=== PATIENT | male | born 1985 | race Two or more races ===

== ENCOUNTER 2024-03-12 17:18 | Inpatient (IN) | payer MEDICAID, SELFPAY ==
[2024-03-12 17:33] VITALS: BP 124/80; PULSE 134; RESP 26; TEMP 37; O2SAT 99; BMI 22.4
--- NOTE | 2024-03-12 17:36 | EKG_ITS ---
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: : 1985 Requested By: Hugh Sidhu Order Number: [id number] Reading MD: Hugh Sidhu Measurements Intervals [place] Rate: 128 P: 81 IA: 126 QRS: 128 QRSD: 97 T: 73 QT: 331 QTc: 484 Interpretive Statements SINUS TACHYCARDIA INDETERMINATE AXIS PATTERN CONSISTENT WITH PULMONARY DISEASE ST DEVIATION AND MODERATE T-WAVE ABNORMALITY, CONSIDER LATERAL ISCHEMIA [-0.1+ mV T WAVE IN I/aVL/V5/V6] Compared to ECG 09/17/2021 08:56:12 Indeterminate axis now present T-wave abnormality now present Possible ischemia now present Left posterior fascicular block no longer present /store/S0/[id number].pdf
--- NOTE | 2024-03-12 17:37 | XR_ITS ---
Examination: PA chest single view TECHNIQUE: Upright PA chest single view Exam date and time: March 12, 2024 1755 hours Comparison December 30, 2022 INDICATIONS: Chest pain beginning 3 days ago. FINDINGS: Normal heart size. No pneumonia or pulmonary edema Moderate thoracic spondylosis IMPRESSION: No pneumonia or pulmonary edema
--- NOTE | 2024-03-12 17:38 | PD.EDRME ---
Rapid Medical Screening Exam RME Arrival date/time: 03/12/24 17:18 Chief Complaint: Shortness of Breath/Dyspnea Time Seen by Provider: 03/12/24 17:31 Vital signs: Vital Signs Temperature 98.6 F 03/12/24 17:33 Pulse Rate 134 H 03/12/24 17:33 Respiratory Rate 26 H 03/12/24 17:33 Blood Pressure 124/80 03/12/24 17:33 Pulse Oximetry (%) 99 03/12/24 17:33 Oxygen Delivery Method Room Air 03/12/24 17:33 RME Narrative: 38-year-old male with history of diabetes and prior DKA presents with complaint of shortness of breath, chest pain, and nausea vomiting. Onset 3 days ago. Patient states it feels similar to the last time he had DKA. I have greeted and performed a focused initial assessment of this patient. A comprehensive ED assessment and evaluation of the patient, analysis of all test results, and completion of the medical decision making process will be conducted by additional ED providers.
[2024-03-12 18:26] LABS: Basophils % (Auto) 0 % (0-2.5); Eosinophils % (Auto) 0 % (0-10); Hematocrit 46.9 % (41.0-53.0); Hemoglobin 15.7 g/dL (13.5-16.0); Immature Granulocytes % (Auto) 0 % (0-0); Immature Granulocytes Auto 0.02 Thou/mm3 (0.00-0.00); Lymphocytes # (Auto) 1.2 Thou/mm3 (1.0-4.8); Lymphocytes % (Auto) 18 % (10-50); Mean Corpuscular HGB Conc 33.5 g/dl (31.0-37.0); Mean Corpuscular Hemoglobin 29.6 pg (25.0-35.0); Mean Corpuscular Volume 88 fL (80-100); Monocytes # (Auto) 0.5 Thou/mm3 (0.0-0.8); Monocytes % (Auto) 8 % (0-12); Neutrophils % (Auto) 74 % (37-80); Nucleated Red Blood Cell % 0 /100 WBC (0); Platelet Count 292 Thou/mm3 (140-440); RDW Standard Deviation 38.3 fL (35.1-43.9); Red Blood Count 5.31 Miln/mm3 (4.50-5.90); White Blood Count 6.8 Thou/mm3 (3.8-10.6)
[2024-03-12 18:27] LABS: Base Excess, Venous -22 (-3-3); O2 Saturation, Venous 75 % (96-97); PCO2, Venous 28 mmHg (36-56); PO2, Venous 49 mmHg (15-58); pH, Venous 7.05 (7.33-7.66)
[2024-03-12 18:35] LABS: Beta Hydroxybutyrate 6.3 mmol/L (<0.6)
[2024-03-12] MEDS: SODIUM CHLORIDE 0.9% 1000 ML 1,000 ML 999 ML IV (19:08)
[2024-03-12 19:22] LABS: Alanine Aminotransferase 17 U/L (10-49); Albumin, Serum 5.6 gm/dL (3.5-5.0); Alkaline Phosphatase 150 U/L (46-116); Anion Gap 28 (7-16); Aspartate Amino Transferase 14 U/L (0-34); BUN/Creatinine Ratio 12 Ratio (12-20); Bilirubin,Total 0.7 mg/dL (0.3-1.2); Blood Urea Nitrogen 17 mg/dL (9-23); Calcium 9.9 mg/dL (8.3-10.6); Calcium (Corrected) 9.9 mg/dL (8.5-10.1); Chloride 94 mMol/L (98-107); Creatinine (Component) 1.4 mg/dL (0.6-1.3); Globulin 2.8 gm/dL (2.3-3.5); Glucose 238 mg/dL (74-106); Magnesium 2.2 mg/dL (1.6-2.6); Osmolality,Calculated 274 (275-295); Phosphorous 4.9 mg/dL (2.4-5.1); Potassium 3.9 mMol/L (3.4-5.1); Sodium 132 mMol/L (136-145); Total Protein 8.4 gm/dL (5.7-8.2); Troponin I < 0.020 ng/mL (0.0-0.045); eGFR > 60 See Note
[2024-03-12 19:26] LABS: Carbon Dioxide < 10.0 mMol/L (20.0-31.0)
--- NOTE | 2024-03-12 20:48 | EDNOTE_ITS ---
ED SOB =RME/HPI General Chief Complaint: Shortness of Breath/Dyspnea Stated Complaint: sob, nausea,x 2days Time Seen by Provider: 03/12/24 17:31 Arrival date/time: 03/12/24 17:18 RME / HPI RME / HPI Narrative: 38-year-old male with history of diabetes and prior DKA presents with complaint of shortness of breath, chest pain, and nausea/vomiting. Onset 3 days ago. Patient states it feels similar to the last time he had DKA. Related Data Home Medications ?Medication ?Instructions ?Recorded ?Confirmed captopril 25 mg tablet 25 mg PO DAILY 09/17/21 0807/04 Previous Rx's ?Medication ?Instructions ?Recorded blood sugar diagnostic (Accu-Chek #25 ea 09/20/21 Guide test strips) lancets #100 ea 09/20/21 blood sugar diagnostic (Accu-Chek #100 ea 01/02/23 Guide test strips) blood-glucose meter (Accu-Chek #1 ea 01/02/23 Guide Glucose Meter) insulin glargine 100 unit/mL (3 25 unit (0.25 mL) subc ut QPM #15 mL 01/02/23 mL) subcutaneous pen (Basaglar KwikPen U-100 Insulin) insulin lispro 100 unit/mL 5 unit (0.05 mL) subcut TID #15 mL 01/02/23 subcutaneous pen lancets (Accu-Chek Fastclix Lancet #100 ea 01/02/23 Drum) pen needle, diabetic 31 gauge x #100 ea 01/02/23 1/ blood-glucose sensor (FreeStyle #1 ea 01/03/23 Kayden 3 Sensor device) Allergies Allergy/AdvReac Type Severity Reaction Status Date / Time No Known Allergies Allergy Unverified 03/12/24 17:23 Review of Systems Review of Systems Narrative Review of Systems: Review of systems negative except as outlined in the HPI. ED Exam Narrative Physical exam: Constitutional: Weak and ill-appearing Eyes: PERRL, conjunctivae w/o pallor, EOMI HENT: normocephalic, atraumatic. Oral mucosa moist Respiratory Effort: Tachypneic. No stridor, effort normal, no retractions Breath sounds: Clear bilaterally; No rales, No rhonchi, No wheezing Cardiovascular: regular rhythm, S1 and S2 normal, no murmur Abdominal: soft; non-distended, non-tender Musculoskeletal: no deformities, no swelling, no LE edema Skin: warm, dry; No rash Neurology: alert, oriented X 4. Normal gait. Moves all extremities spontaneously. Psychology: cooperative, normal mood Course Quality Measures none Orders Category Date Time Status Admit to Inpatient Status Routine Admission 03/12/24 21:15 Active Patient Condition Routine Admission 03/12/24 21:14 Ordered Activity as Tolerated Routine Care 03/12/24 21:15 Ordered Vp [employer] STAT Care 03/12/24 20:42 Active Continuous Pulse Oximetry NOW Care 03/12/24 21:14 Completed DKA Protocol QSHIFT Care 03/12/24 20:42 Active EKG (ED ONLY) *Do not use* NOW Care 03/12/24 17:36 Completed Glucose [Bedside Blood Glucose] NOW Care 03/12/24 17:36 Active Insert IV NOW Care 03/12/24 17:37 Active Intake and Output Routine Care 03/12/24 20:42 Ordered NPO NOW Care 03/12/24 21:15 Active Notify provider NEEDED Care 03/12/24 20:42 Active Notify provider NEEDED Care 03/12/24 21:14 Active Seizure precautions NEEDED Care 03/12/24 21:15 Active Strict Intake and Output Q1H Care 03/12/24 21:15 Ordered Strict Intake and Output Q1H Care 03/12/24 22:15 Ordered Strict Intake and Output Q1H Care 03/12/24 23:15 Ordered Strict Intake and Output Q1H Care 03/13/24 00:15 Ordered Strict Intake and Output Q1H Care 03/13/24 01:15 Ordered Strict Intake and Output Q1H Care 03/13/24 02:15 Ordered Strict Intake and Output Q1H Care 03/13/24 03:15 Ordered Strict Intake and Output Q1H Care 03/13/24 04:15 Ordered Strict Intake and Output Q1H Care 03/13/24 05:15 Ordered Strict Intake and Output Q1H Care 03/13/24 06:15 Ordered Strict Intake and Output Q1H Care 03/13/24 07:15 Ordered Strict Intake and Output Q1H Care 03/13/24 08:15 Ordered Strict Intake and Output Q1H Care 03/13/24 09:15 Ordered Strict Intake and Output Q1H Care 03/13/24 10:15 Ordered Strict Intake and Output Q1H Care 03/13/24 11:15 Ordered Strict Intake and Output Q1H Care 03/13/24 12:15 Ordered Strict Intake and Output Q1H Care 03/13/24 13:15 Ordered Strict Intake and Output Q1H Care 03/13/24 14:15 Ordered Strict Intake and Output Q1H Care 03/13/24 15:15 Ordered Strict Intake and Output Q1H Care 03/13/24 16:15 Ordered Strict Intake and Output Q1H Care 03/13/24 17:15 Ordered Strict Intake and Output Q1H Care 03/13/24 18:15 Ordered Strict Intake and Output Q1H Care 03/13/24 19:15 Ordered Strict Intake and Output Q1H Care 03/13/24 20:15 Ordered Strict Intake and Output Q1H Care 03/13/24 21:15 Ordered Referral Registered Dietitian Routine Cons 03/12/24 20:42 Active Diet NPO (NOW) Diet 03/12/24 21:15 Active EKG (ED Only) Stat Exams 03/12/24 17:36 Draft XR chest 1V portable Stat Exams 03/12/24 17:37 Completed Beta Hydroxybutyrate Stat Lab 03/12/24 18:11 Completed CBC AM DRAW Lab 03/13/24 05:00 Ordered CBC AM DRAW Lab 03/14/24 05:00 Ordered CBC AM DRAW Lab 03/15/24 05:00 Ordered CBC AM DRAW Lab 03/16/24 05:00 Ordered CBC AM DRAW Lab 03/17/24 05:00 Ordered CBC Stat Lab 03/12/24 18:11 Completed CMP [Comprehensive Metabolic Panel] Stat Lab 03/12/24 18:11 Completed Lipid Panel AM DRAW Lab 03/13/24 05:00 Ordered Magnesium Q4H Lab 03/12/24 21:52 Completed Magnesium Q4H Lab 03/13/24 01:30 Ordered Magnesium Q4H Lab 03/13/24 05:30 Ordered Magnesium Q4H Lab 03/13/24 09:30 Ordered Magnesium Q4H Lab 03/13/24 13:30 Ordered Magnesium Q4H Lab 03/13/24 17:30 Ordered Magnesium Stat Lab 03/12/24 18:11 Completed Phosphorous Q4H Lab 03/13/24 01:30 Ordered Phosphorous Q4H Lab 03/13/24 05:30 Ordered Phosphorous Q4H Lab 03/13/24 09:30 Ordered Phosphorous Q4H Lab 03/13/24 13:30 Ordered Phosphorous Q4H Lab 03/13/24 17:30 Ordered Phosphorous Stat Lab 03/12/24 18:11 Completed Renal Function Panel Q4 Lab 03/12/24 21:52 Completed Renal Function Panel Q4 Lab 03/13/24 01:30 Ordered Renal Function Panel Q4 Lab 03/13/24 05:30 Ordered Renal Function Panel Q4 Lab 03/13/24 09:30 Ordered Renal Function Panel Q4 Lab 03/13/24 13:30 Ordered Renal Function Panel Q4 Lab 03/13/24 17:30 Ordered Thyroid Stimulating Hormone AM DRAW Lab 03/13/24 05:00 Ordered Troponin I Stat Lab 03/12/24 18:11 Completed Urinalysis Stat Lab 03/12/24 21:18 Completed Venous Blood Gas Stat Lab 03/12/24 18:11 Completed Acetaminophen Tab [Tylenol Tab] Med 03/12/24 21:14 Active 650 mg PO Q6H PRN Acetaminophen Tab [Tylenol Tab] Med 03/12/24 21:14 Active 650 mg PO Q6H PRN Dextrose 5%-Lactated Ringers [D5-Lr] 1,000 ml Med 03/12/24 20:42 Active IV 250 mls/hr Dextrose 50% Syr [D50w Syringe Abboject] Med 03/12/24 20:42 Active 25 ml IV PRNMRX1 PRN Enoxaparin [Lovenox] Med 03/13/24 09:00 Active 40 mg SC QDAY KCL 20 mEq/L in D5-LR Med 03/12/24 20:42 Active 20 meq in 1,000 ml IV 250 mls/hr Magnesium Sulfate 2 GM Ivpb [Magnesium Sulfate Ivpb] Med 03/12/24 20:42 Active 2 gm in 50 ml IV 25 mls/hr Ondansetron Inj [Zofran Inj] Med 03/12/24 21:14 Active 4 mg IV Q6H PRN POTASSIUM CHL 10 mEq IVPB [Kcl Ivpb] Med 03/12/24 20:42 Active 10 meq in 100 ml IV 100 mls/hr Pre-Mixed [Pre-mixed Bag] 1 bag Med 03/12/24 20:42 Active Insulin Reg 100 Units/100 ml [Myxredlin] 100 unit IV 0.1 unit/kg/hr Ringers Lactated 1000 ml [Lactated Ringers] 1,000 ml Med 03/12/24 20:42 Active Pot Chl Additive [KCl Additive] 20 meq IV 250 mls/hr Ringers Lactated 1000 ml [Lactated Ringers] 1,000 ml Med 03/12/24 20:42 Active Pot Chl Additive [KCl Additive] 40 meq IV 250 mls/hr Ringers Lactated 1000 ml [Lactated Ringers] 1,000 ml Med 03/12/24 20:42 Active IV 250 mls/hr Sodium Chloride 0.9% 1000 ml [Ns] 1,000 ml Med 03/12/24 17:37 Discontinued IV 999 mls/hr Code Status Routine Oth 03/12/24 21:14 Ordered Vital Signs Vital signs: Vital Signs Temperature 98.6 F 03/12/24 17:33 Pulse Rate 134 H 03/12/24 17:33 Respiratory Rate 26 H 03/12/24 17:33 Blood Pressure 124/80 03/12/24 17:33 Pulse Oximetry (%) 99 03/12/24 17:33 Oxygen Delivery Method Room Air 03/12/24 17:33 Shortness of Breath / Dyspnea MDM Narrative MDM Narrative:: 38-year-old male with history of insulin-dependent diabetes presents with complaint of shortness of breath. Differential diagnoses include ACS, PE, DKA, pneumothorax, URI. EKG and troponin reassuring against ACS. History not consistent with PE and patient with normal SpO2 on room air. Chest x-ray without evidence of pneumoth orax. Labs with elevated anion gap, blood gas shows a pH of 7.05. Likely DKA. Discussed with ICU resident Dr. Nation, and patient will be admitted to the ICU. Patient data External records reviewed:: [facility] previous records Clinical information provided by:: patient Social determinants that could affect healthcare access:: none Patient has the following chronic illnesses:: Diabetes How is presenting disease/condition affected by chronic disease/condition?: caused by Evaluation data The following diagnostics were reviewed and interpreted by me:: lab results and radiology exam(s) Lab and/or radiology exams considered but not ordered:: None Interpretation Summary: EKG: Sinus tachycardia rate 128. No STEMI. No T wave inversions. Examination: PA chest single view TECHNIQUE: Upright PA chest single view Exam date and time: March 12, 2024 1755 hours Comparison December 30, 2022 INDICATIONS: Chest pain beginning 3 days ago. FINDINGS: Normal heart size. No pneumonia or pulmonary edema Moderate thoracic spondylosis IMPRESSION: No pneumonia or pulmonary edema Medications / Prescriptions Medications or Prescriptions considered but not ordered:: N/A Medication administrations:: Medication Administration History Acetaminophen (Acetaminophen 325 Mg Tablet) 650 mg PO Q6H PRN PRN Reason: Fever >101.5 Stop: 04/11/24 21:13 Acetaminophen (Acetaminophen 325 Mg Tablet) 650 mg PO Q6H PRN PRN Reason: PAIN SCALE 1-3 (mild Stop: 04/11/24 21:13 Dextrose (Dextrose 50%-Water Inj 50 Ml Syringe) 25 ml IV PRNMRX1 PRN PRN Reason: Blood Sugar - Low Enoxaparin Sodium (Enoxaparin Sod Inj 40 Mg/0.4 Ml Syringe) 40 mg SC QDAY NANCY Stop: 03/27/24 08:59 Potassium Chloride (Kcl Ivpb) 10 meq in 100 mls @ 100 mls/hr IV .Q1H PRN PRN Reason: IF POTASSIUM LESS THAN 3.3 Stop: 04/11/24 20:41 Magnesium Sulfate (Magnesium Sulfate Ivpb) 2 gm in 50 mls @ 25 mls/hr IV .Q2H PRN PRN Reason: PER DKA PROTOCOL Stop: 04/11/24 20:41 Insulin Human Regular 100 unit (/ IV Miscellaneous Supplies) 100 mls @ 6.486 mls/hr IV .[id number] PRN; Protocol PRN Reason: PER PROTOCOL Stop: 04/11/24 20:41 Last Titration: 03/12/24 23:00 Dose: 0.05 unit/kg/hr, 3.243 mls/hr Documented By: CLT Co-signed By: LACEY Titration: 03/12/24 22:40 Dose: 0.1 unit/kg/hr, 6.486 mls/hr Documented By: SRINIVASAN Co-signed By: VANDA Admin: 03/12/24 21:40 Dose: 0.05 unit/kg/hr, 3.243 mls/hr Documented By: EE Co-signed By: VANDA Dextrose/Lactated Ringer's (D5-Lr) 1,000 mls @ 250 mls/hr IV .Q4H PRN PRN Reason: PER PROTOCOL Stop: 04/11/24 20:41 Lactated Ringer's (Lactated Ringers) 1,000 mls @ 250 mls/hr IV .Q4H PRN PRN Reason: PER PROTOCOL Stop: 03/13/24 20:41 Potassium Chloride 20 meq/ (Lactated Ringer's) 1,010 mls @ 250 mls/hr IV .Q4H3M PRN PRN Reason: K LEVEL 3.3 TO 5.3mM/L Stop: 04/11/24 20:41 Last Infusion: 03/12/24 23:00 Dose: 0 mls/hr Documented By: Admin: 03/12/24 22:40 Dose: 250 mls/hr Documented By: SRINIVASAN Potassium Chloride 40 meq/ (Lactated Ringer's) 1,020 mls @ 250 mls/hr IV .Q4H5M PRN PRN Reason: K LEVEL < 3.3 mM/L Stop: 04/11/24 20:41 Potassium Cl/Dextrose/Lact Ringer's (Kcl 20 Meq/L In D5-Lr) 20 meq in 1,000 mls @ 250 mls/hr IV .Q4H PRN PRN Reason: K LEVEL 3.3 TO 5.3 mM/L Stop: 04/11/24 20:41 Last Infusion: 03/12/24 23:00 Dose: 250 mls/hr Documented By: Infusion: 03/12/24 22:40 Dose: 0 mls/hr Documented By: Admin: 03/12/24 21:41 Dose: 250 mls/hr Documented By: SRINIVASAN Ondansetron HCl (Ondansetron Inj 2 Mg/Ml Inj 2 Ml) 4 mg IV Q6H PRN; Protocol PRN Reason: NAUSEA OR VOMITING Stop: 04/11/24 21:13 Last Admin: 03/12/24 23:34 Dose: 4 mg Documented By: ANA Discontinued Medications Sodium Chloride (Ns) 1,000 mls @ 999 mls/hr IV .Q1H1M ONE Stop: 03/12/24 18:37 Last Infusion: 03/12/24 21:30 Dose: Infused Documented By: Admin: 03/12/24 19:08 Dose: 999 mls/hr Documented By: OA see above Consultations Consultation(s) initiated? (list below): Yes Consultation #1 (Physician, Specialty, Details): Case discussed with resident, Dr. Nation. Will admit to ICU. Time: 20:45 Diagnosis Shortness of Breath Differential Diagnosis: other (See MDM section) Most likely diagnosis given after review of the tests above:: Diabetic ketoacidosis Admission Indicated Admission indicated?: indicated Admission Request Was there a request for admission?: Yes Disposition Plan Disposition Plan: Admit Critical Care Time Critical Care Time Critical Care Time: Yes Total Critical Care Time (min.): 35 Attestation: Due to a high probability of clinically significant, life threatening deterioration, the patient required my highest level of preparedness to intervene emergently and I personally spent this critical care time directly and personally managing the patient. This critical care time included obtaining a history; examining the patient; pulse oximetry; ordering and review of studies; arranging urgent treatment with development of a management plan; evaluation of patient's response to treatment; frequent reassessment; and, discussions with other providers. This critical care time was performed to assess and manage the high probability of imminent, life-threatening deterioration that could result in multi-organ failure. It was exclusive of separately billable procedures and treating other patients. Please see MDM section and the rest of the note for further information on patient assessment and treatment. Systems at risk: Endocrine, metabolic Discharge Plan Plan Patient Disposition: Admit Acute Care w/in Hospital Problem List Clinical Impression: DKA (diabetic ketoacidosis)
[2024-03-12 21:31] LABS: Collection Type, Urine Clean Catch
[2024-03-12 21:34] VITALS: BP 156/106; PULSE 109; PULSE 113; RESP 22; TEMP 36.4; O2SAT 100
[2024-03-12 21:40] LABS: Bacteria,Urine Rare; Bilirubin,Urine Negative (Negative); Blood,Urine Negative (Negative); Clarity,Urine Clear (Clear/Hazy); Color,Urine Lt-Yellow (Lt Yel-Yel); Glucose, Urine 4+ (Negative); Ketones,Urine 4+ (Negative); Leukocyte Esterase,Urine Negative (Negative); Nitrite,Urine Negative (Negative); PH,Urine 5.5 (5.0-7.0); Protein,Urine 1+ (Neg - Trace); RBC,Urine 1 /hpf (0-3); Specific Gravity,Urine 1.026 (1.001-1.035); Squamous Epithelial Cell,Urine < 1 /hpf (0-5); Urobilinogen,Urine Negative mg/dL (0.0-1.0); WBC,Urine < 1 /hpf (0-5)
[2024-03-12] MEDS: INSULIN REG 100 UNITS/100 ML 100 UNIT in PRE-MIXED 1 BAG IV (21:40)
[2024-03-12] MEDS: KCL 20 mEq/L in D5-LR 20 MEQ/1,000 ML BAG 250 MEQ IV (21:41)
[2024-03-12 21:45] VITALS: PULSE 108; RESP 16; O2SAT 100
--- NOTE | 2024-03-12 21:45 | ESHP_ITS ---
<Statement entered by Mart Guardado MD - 03/13/24 10:37> I have discussed and was present for the essential components of the history, physical examination, diagnosis, and treatment plan with the resident. I agree with the patient's care as documented by the resident and amended herein by me. Mart Guardado MD FACP. Documentation for date of: 03/12/24 HPI History of Present Illness Chief complaint: SOB History of present illness: Patient is a 38 male with past medical history of insulin-dependent diabetes mellitus, previous hospital admissions for DKA, EtOH use, pancreatitis and high blood pressure presenting with a 3-day history of shortness of breath and decreased p.o. intake with generalized weakness. Patient explains that he recently returned from a trip to [place] about 2 weeks ago after staying there since January. In [place] he was found to have DKA and he was admitted for a couple of days. He did not have any sick contacts and was doing well since he returned however he has not been compliant with his insulin checks. He states that usually when he is checks his fasting blood glucose he is in the 90s to 130s range however he does not check for the remainder of the day. He has not seen his PCP ' for a while' but does state that he has been taking his insulin as previously prescribed, though he did not tell me exactly how many units he has been taking. He denies any nausea, vomiting, abdominal pain, fevers, chills, dysuria, diarrhea or constipation. Past medical history: Hypertension, insulin-dependent diabetes, triglyceridemia Allergies: None Family history: Hypertension diabetes Social history: Drinks 3 beers daily and has been doing so for many years, smokes 1 or 2 cigarettes occasionally but does not remember the last time he did that. Does not use any other substances. He works in the [employer] Surgical history: Left upper back abscess drainage years ago. In the ED Vital signs: BP 124/80, pulse 134, RR 26, temperature 98.6, O2 sat 99 on room air CBC was unremarkable VBG was significant for a pH of 7.05 CMP was significant for a bicarb of less than 10, anion gap of 28, creatinine of 1.4 from a baseline of 0.7, glucose of 238, BHB 6.3 EKG shows sinus tachycardia and chest x-ray did not reveal any pathology Patient will be admitted to the ICU for management of his DKA Review of Systems Review of Systems Systems Reviewed: All systems reviewed, normal except as documented Exam Vital Signs Temp Pulse Resp BP Pulse Ox O2 Del Method 97.6 F 113 H 22 H 156/106 H 100 Room Air 03/12/24 21:34 03/12/24 21:34 03/12/24 21:34 03/12/24 21:34 03/12/24 21:34 03/12/24 21:34 Narrative Exam Constitutional: Thin male in some distress Head: Normocephalic/Atraumatic Eyes: PERRL , no conjunctival injection , symmetrical lids. ENMT: Dry mucous Membranes, No trauma or injury. Neck: Supple to palpation, No JVD CVS: RRR, S1 and S2 present, no murmurs, rubs or gallops . RESP: CTAB, no SOB, no rales, rhonchi or wheezing. No respiratory Distress GI: Normal BS, mild tenderness to deep palpation epigastric region MSK: Full range of motion, No trauma or deformities or masses. Skin: Warm to touch, Dry. No rashes or lesions. No hematomas Neuro: solar consultant II-XII grossly intact. Sensation grossly intact. Psych: (AAO) x3 . Appropriate mood and affect. Results: Labs 03/12/24 18:11 03/12/24 18:11 Labs: Short CBC 03/12/24 Range/Units 18:11 WBC 6.8 (3.8-10.6) Thou/mm3 Hgb 15.7 (13.5-16.0) g/dL Hct 46.9 (41.0-53.0) % Plt Count 292 (140-440) Thou/mm3 BMP 03/12/24 18:11 Sodium 132 L Potassium 3.9 Chloride 94 L Carbon Dioxide < 10.0 L* BUN 17 Creatinine 1.4 H Glucose 238 H Calcium 9.9 Cardiac Enzymes 03/12/24 Range/Units 18:11 Troponin I < 0.020 (0.0-0.045) ng/mL Liver Function 03/12/24 Range/Units 18:11 Total Bilirubin 0.7 (0.3-1.2) mg/dL AST 14 (0-34) U/L ALT 17 (10-49) U/L Alkaline Phosphatase 150 H (46-116) U/L Albumin 5.6 H (3.5-5.0) gm/dL Urine 03/12/24 Range/Units 21:18 Urine Color Lt-Yellow (Lt Yel-Yel) Urine Clarity Clear (Clear/Hazy) Urine pH 5.5 (5.0-7.0) Ur Specific Patterson 1.026 (1.001-1.035) Urine Protein 1+ A (Neg - Trace) Urine Glucose (UA) 4+ A (Negative) ABG Interpretation ABG results: 03/12/24 18:11 VBG pH 7.05 L VBG pCO2 28 L VBG pO2 49 VBG Base Excess -22 L Quality Measures Quality Measures none Medications Home Medications and Allergies Home Medications ?Medication ?Instructions ?Recorded ?Confirmed ?Type captopril 25 mg tablet 25 mg PO DAILY 09/17/2107/04 History Allergies Allergy/AdvReac Type Severity Reaction Status Date / Time No Known Allergies Allergy Unverified 03/12/24 17:23 Visit Medications Acetaminophen (Acetaminophen 325 Mg Tablet) 650 mg PO Q6H PRN PRN Reason: Fever >101.5 Stop: 04/11/24 21:13 Acetaminophen (Acetaminophen 325 Mg Tablet) 650 mg PO Q6H PRN PRN Reason: PAIN SCALE 1-3 (mild Stop: 04/11/24 21:13 Dextrose (Dextrose 50%-Water Inj 50 Ml Syringe) 25 ml IV PRNMRX1 PRN PRN Reason: Blood Sugar - Low Enoxaparin Sodium (Enoxaparin Sod Inj 40 Mg/0.4 Ml Syringe) 40 mg SC QDAY [facility] Stop: 03/27/24 08:59 Potassium Chloride (Kcl Ivpb) 10 meq in 100 mls @ 100 mls/hr IV .Q1H PRN PRN Reason: IF POTASSIUM LESS THAN 3.3 Stop: 04/11/24 20:41 Magnesium Sulfate (Magnesium Sulfate Ivpb) 2 gm in 50 mls @ 25 mls/hr IV .Q2H PRN PRN Reason: PER DKA PROTOCOL Stop: 04/11/24 20:41 Insulin Human Regular 100 unit (/ IV Miscellaneous Supplies) 100 mls @ 6.486 mls/hr IV .[id number] PRN; Protocol PRN Reason: PER PROTOCOL Stop: 04/11/24 20:41 Last Admin: 03/12/24 21:40 Dose: 0.05 unit/kg/hr, 3.243 mls/hr Dextrose/Lactated Ringer's (D5-Lr) 1,000 mls @ 250 mls/hr IV .Q4H PRN PRN Reason: PER PROTOCOL Stop: 04/11/24 20:41 Lactated Ringer's (Lactated Ringers) 1,000 mls @ 250 mls/hr IV .Q4H PRN PRN Reason: PER PROTOCOL Stop: 03/13/24 20:41 Potassium Chloride 20 meq/ (Lactated Ringer's) 1,010 mls @ 250 mls/hr IV .Q4H3M PRN PRN Reason: K LEVEL 3.3 TO 5.3mM/L Stop: 04/11/24 20:41 Potassium Chloride 40 meq/ (Lactated Ringer's) 1,020 mls @ 250 mls/hr IV .Q4H5M PRN PRN Reason: K LEVEL < 3.3 mM/L Stop: 04/11/24 20:41 Potassium Cl/Dextrose/Lact Ringer's (Kcl 20 Meq/L In D5-Lr) 20 meq in 1,000 mls @ 250 mls/hr IV .Q4H PRN PRN Reason: K LEVEL 3.3 TO 5.3 mM/L Stop: 04/11/24 20:41 Last Admin: 03/12/24 21:41 Dose: 250 mls/hr Ondansetron HCl (Ondansetron Inj 2 Mg/Ml Inj 2 Ml) 4 mg IV Q6H PRN; Protocol PRN Reason: NAUSEA OR VOMITING Stop: 04/11/24 21:13 Discontinued Medications Sodium Chloride (Ns) 1,000 mls @ 999 mls/hr IV .Q1H1M ONE Stop: 03/12/24 18:37 Last Infusion: 03/12/24 21:30 Dose: Infused Assessment & Plan Plan Neuro Stable, alert and oriented x 3 without any confusion, able to speak full sentences in Greek CVS #History of hypertension Currently normotensive Will restart home meds once patient's med rec is completed Resp Stable GI Stable Renal #GAYLE #Anion gap metabolic acidosis Secondary to DKA and severe dehydration Patient's pH was 7.05, BHB was 6.5 and bicarb was less than 10. Patient has history of IDDM Aggressive IV fluid resuscitation and management of his DKA Endocrine #DKA Likely secondary to poor intake in the last several days as well as noncompliant with medications On presentation patient had a pH of 7.05, bicarb was less than 10, anion gap of 28 and BHB of 6.3 with a blood glucose of 238 Plan: N.p.o. Zofran as needed IV fluid resuscitation and insulin drip as per DKA protocol Electrolyte replenishment protocol Follow-up with lipid panel Follow-up with lipase level Referral to registered dietitian ID/Skin Stable Hematology Stable Hospital Maintenance: FEN: N.p.o., aggressive IV fluid resuscitation DVT PPx: Lovenox GI PPx: None IV lines: Left peripheral IV upper extremity Gómez: No Code Status: Full code Dispo: Patient will remain in the ICU for further management of his DKA I discussed patient's care with attending, Dr. Geo Nation MD, PGY3
[2024-03-12 22:00] VITALS: BP 140/99; PULSE 109; RESP 16; O2SAT 100
[2024-03-12 22:11] LABS: Base Excess, Venous -22 (-3-3); O2 Saturation, Venous 78 % (96-97); PCO2, Venous 22 mmHg (36-56); PO2, Venous 50 mmHg (15-58); pH, Venous 7.08 (7.33-7.66)
[2024-03-12 22:15] VITALS: BP 140/99; PULSE 105; RESP 19; TEMP 36.6; O2SAT 100
[2024-03-12] MEDS: POT CHL ADDITIVE 20 MEQ in RINGERS LACTATED 1000 ML 1,000 ML 250 MEQ IV (22:40)
[2024-03-12 22:52] LABS: Albumin, Serum 4.7 gm/dL (3.5-5.0); Alcohol, Blood Medical < 3.0 mg/dL (0-10.0); Anion Gap 25 (7-16); BUN/Creatinine Ratio 12 Ratio (12-20); Blood Urea Nitrogen 14 mg/dL (9-23); Calcium 9.3 mg/dL (8.3-10.6); Calcium (Corrected) 9.3 mg/dL (8.5-10.1); Chloride 101 mMol/L (98-107); Creatinine (Component) 1.2 mg/dL (0.6-1.3); Estimated Creatinine Clearance 75.8 mL/min (>60); Glucose 186 mg/dL (74-106); Lipase 22 U/L (12-53); Osmolality,Calculated 277 (275-295); Phosphorous 3.7 mg/dL (2.4-5.1); Potassium 3.9 mMol/L (3.4-5.1); Sodium 136 mMol/L (136-145); eGFR > 60 See Note
[2024-03-12 22:53] LABS: Carbon Dioxide < 10.0 mMol/L (20.0-31.0)
[2024-03-12 23:03] VITALS: BP 149/108; PULSE 108; RESP 19; O2SAT 100
[2024-03-12] MEDS: ONDANSETRON INJ 2 MG/ML INJ 2 ML 4 MG IV (23:34)
[2024-03-13] VITALS (21 sets, daily range): BP systolic 104–137; BP diastolic 67–109; PULSE 85–118; RESP 14–26; TEMP 36.1–37.2; O2SAT 99–100; BMI 19.4; BMI 19.5
[2024-03-13 01:50] LABS: Base Excess, Venous -15 (-3-3); O2 Saturation, Venous 96 % (96-97); PCO2, Venous 20 mmHg (36-56); PO2, Venous 103 mmHg (15-58); pH, Venous 7.29 (7.33-7.66)
[2024-03-13 02:09] LABS: Albumin, Serum 4.2 gm/dL (3.5-5.0); Anion Gap 21 (7-16); BUN/Creatinine Ratio 16 Ratio (12-20); Blood Urea Nitrogen 14 mg/dL (9-23); Calcium 9.2 mg/dL (8.3-10.6); Calcium (Corrected) 9.2 mg/dL (8.5-10.1); Chloride 106 mMol/L (98-107); Creatinine (Component) 0.9 mg/dL (0.6-1.3); Estimated Creatinine Clearance 101.1 mL/min (>60); Glucose 148 mg/dL (74-106); Magnesium 1.8 mg/dL (1.6-2.6); Osmolality,Calculated 277 (275-295); Phosphorous 1.8 mg/dL (2.4-5.1); Potassium 3.9 mMol/L (3.4-5.1); Sodium 137 mMol/L (136-145); eGFR > 60 See Note
[2024-03-13] MEDS: KCL 20 mEq/L in D5-LR 20 MEQ/1,000 ML BAG 250 MEQ IV ×2 (03:03→07:07)
[2024-03-13 06:11] LABS: Base Excess, Venous -9 (-3-3); O2 Saturation, Venous 96 % (96-97); PCO2, Venous 31 mmHg (36-56); PO2, Venous 142 mmHg (15-58); pH, Venous 7.32 (7.33-7.66)
[2024-03-13 06:23] LABS: Basophils % (Auto) 0 % (0-2.5); Eosinophils % (Auto) 0 % (0-10); Hematocrit 35.7 % (41.0-53.0); Hemoglobin 12.6 g/dL (13.5-16.0); Immature Granulocytes % (Auto) 0 % (0-0); Immature Granulocytes Auto 0.02 Thou/mm3 (0.00-0.00); Lymphocytes # (Auto) 1.5 Thou/mm3 (1.0-4.8); Lymphocytes % (Auto) 25 % (10-50); Mean Corpuscular HGB Conc 35.3 g/dl (31.0-37.0); Mean Corpuscular Hemoglobin 29.7 pg (25.0-35.0); Mean Corpuscular Volume 84 fL (80-100); Monocytes # (Auto) 0.7 Thou/mm3 (0.0-0.8); Monocytes % (Auto) 11 % (0-12); Neutrophils # (Auto) 3.9 Thou/mm3 (1.8-7.7); Neutrophils % (Auto) 64 % (37-80); Nucleated Red Blood Cell % 0 /100 WBC (0); Platelet Count 217 Thou/mm3 (140-440); RDW Standard Deviation 34.6 fL (35.1-43.9); Red Blood Count 4.24 Miln/mm3 (4.50-5.90); White Blood Count 6.1 Thou/mm3 (3.8-10.6)
[2024-03-13 06:49] LABS: Albumin, Serum 3.9 gm/dL (3.5-5.0); Anion Gap 16 (7-16); BUN/Creatinine Ratio 12 Ratio (12-20); Blood Urea Nitrogen 12 mg/dL (9-23); Calcium 9.4 mg/dL (8.3-10.6); Calcium (Corrected) 9.5 mg/dL (8.5-10.1); Carbon Dioxide 15.7 mMol/L (20.0-31.0); Chloride 108 mMol/L (98-107); Estimated Creatinine Clearance 79.1 mL/min (>60); Glucose 152 mg/dL (74-106); Magnesium 1.8 mg/dL (1.6-2.6); Osmolality,Calculated 282 (275-295); Phosphorous 1.4 mg/dL (2.4-5.1); Potassium 3.7 mMol/L (3.4-5.1); Sodium 140 mMol/L (136-145); Thyroid Stimulating Hormone 1.64 uIU/mL (0.55-4.78); eGFR > 60 See Note
[2024-03-13 07:05] LABS: Cardiac Risk Estimate 2.4 RATIO (4.0-6.7); Cholesterol 88 mg/dL (132-200); HDL Cholesterol 36 mg/dL (40-60); LDL Cholesterol,Calculated 38 mg/dL (0-130); Triglycerides 69 mg/dL (30-150)
[2024-03-13] MEDS: ENOXAPARIN SOD INJ 40 MG/0.4 ML SYRINGE SC (08:02)
[2024-03-13 09:28] LABS: Base Excess, Venous -3 (-3-3); O2 Saturation, Venous 95 % (96-97); PCO2, Venous 38 mmHg (36-56); PO2, Venous 89 mmHg (15-58); pH, Venous 7.36 (7.33-7.66)
[2024-03-13 09:54] LABS: Anion Gap 11 (7-16); BUN/Creatinine Ratio 11 Ratio (12-20); Blood Urea Nitrogen 10 mg/dL (9-23); Calcium 8.9 mg/dL (8.3-10.6); Calcium (Corrected) 8.9 mg/dL (8.5-10.1); Carbon Dioxide 21.4 mMol/L (20.0-31.0); Chloride 108 mMol/L (98-107); Creatinine (Component) 0.9 mg/dL (0.6-1.3); Estimated Creatinine Clearance 87.9 mL/min (>60); Glucose 102 mg/dL (74-106); Magnesium 1.7 mg/dL (1.6-2.6); Osmolality,Calculated 278 (275-295); Phosphorous 1.3 mg/dL (2.4-5.1); Potassium 3.2 mMol/L (3.4-5.1); Sodium 140 mMol/L (136-145); eGFR > 60 See Note
[2024-03-13 10:15] LABS: Glucose Estimated Average 283 mg/dL (80-131); Hemoglobin A1C 11.5 % Hgb (4.8-6.0)
--- NOTE | 2024-03-13 10:28 | PD.INTPROG ---
Documentation for date of: 03/13/24 Subjective Subjective Interval history: This is a 38yo M admitted to the ICU for DKA. Pt notes that he does not check his blood sugar with any frequency. States his home regimen has been consistent with one time daily dosing of insulin. He has been admitted approximately once a year for DKA over the last few years. States he feels better than on arrival. Critical Care Note Critical care time (min.): 0 Exam Vital Signs Temp Pulse Resp BP Pulse Ox O2 Del Method O2 Flow Rate 98.6 F 96 17 119/76 99 Room Air 10 03/13/24 07:00 03/13/24 09:00 03/13/24 09:00 03/13/24 09:00 03/13/24 09:00 03/13/24 07:00 03/13/24 04:00 Narrative Exam Gen- NAD, AAOx3, nl body habitus HEENT- NC/AT, mucosa dry, sclera anicteric, EOMI Chest- LCTAB, HRRR, no increase in WOB Abd- s/nt/bs+ Ext- no edema, pulses palp, no clubbing, no mottling, moves all 4 Physical Exam Completion Physical Exam Complete?: Yes Objective - [employer] [facility] 03/13/24 04:52 03/13/24 05:05 Labs: Laboratory Results - last 24 hr 03/12/24 03/12/24 03/12/24 18:11 21:18 21:52 WBC 6.8 RBC 5.31 Hgb 15.7 Hct 46.9 MCV 88 MCH 29.6 MCHC 33.5 RDW Std Deviation 38.3 Plt Count 292 Neut % (Auto) 74 Lymph % (Auto) 18 [place] % (Auto) 8 Eos % (Auto) 0 Baso % (Auto) 0 Neut # (Auto) 5.0 Lymph # (Auto) 1.2 [place] # (Auto) 0.5 Eos # (Auto) 0.0 Baso # (Auto) 0.0 Immature Gran # (Auto) 0.02 H Absolute Nucleated RBC 0.00 Immature Gran % 0 Nucleated RBC % 0 VBG pH 7.05 L 7.08 L VBG pCO2 28 L 22 L VBG pO2 49 50 VBG O2 Sat (Trey) 75 L 78 L VBG Base Excess -22 L -22 L Sodium 132 L 136 Potassium 3.9 3.9 Chloride 94 L 101 Carbon Dioxide < 10.0 L* < 10.0 L* Anion Gap 28 H 25 H BUN 17 14 Creatinine 1.4 H 1.2 Estim Creat Clear Calc 65.0 75.8 eGFR > 60 > 60 BUN/Creatinine Ratio 12 12 Glucose [address] H [address] Glu mg/dL Hemoglobin A1c Calculated Osmolality 274 L 277 Calcium 9.9 9.3 Corrected Calcium 9.9 9.3 Phosphorus 4.9 3.7 Magnesium 2.2 2.0 Total Bilirubin 0.7 AST 14 ALT 17 Alkaline Phosphatase 150 H Troponin I < 0.020 Total Protein 8.4 H Albumin 5.6 H 4.7 D Globulin 2.8 Albumin/Globulin Ratio 2.0 Triglycerides Cholesterol LDL Cholesterol, Calc HDL Cholesterol Cholesterol/HDL Ratio Lipase 22 Beta-Hydroxybutyrate/Acetoacetate 6.3 H TSH Ur Collection Type Clean Catch Urine Color Lt-Yellow Urine Clarity Clear Urine pH 5.5 Ur Specific [place] 1.026 Urine Protein 1+ A Urine Glucose (UA) 4+ A Urine Ketones 4+ A Urine Blood Negative Urine Nitrite Negative Urine Bilirubin Negative Urine Urobilinogen (Auto) Negative Ur Leukocyte Esterase Negative Urine RBC 1 Urine WBC < 1 Ur Squamous Epith Cells < 1 Urine Bacteria Rare Ethyl Alcohol < 3.0 03/13/24 03/13/24 03/13/24 01:38 04:52 05:05 WBC 6.1 RBC 4.24 L Hgb 12.6 L D Hct 35.7 L D MCV 84 MCH 29.7 MCHC 35.3 RDW Std Deviation 34.6 L Plt Count 217 D Neut % (Auto) 64 Lymph % (Auto) 25 [place] % (Auto) 11 Eos % (Auto) 0 Baso % (Auto) 0 Neut # (Auto) 3.9 Lymph # (Auto) 1.5 [place] # (Auto) 0.7 Eos # (Auto) 0.0 Baso # (Auto) 0.0 Immature Gran # (Auto) 0.02 H Absolute Nucleated RBC 0.00 Immature Gran % 0 Nucleated RBC % 0 VBG pH 7.29 L 7.32 L VBG pCO2 20 L 31 L D VBG pO2 103 H D 142 H D VBG O2 Sat (Trey) 96 D 96 VBG Base Excess -15 L -9 L Sodium 137 140 Potassium 3.9 3.7 Chloride 106 108 H Carbon Dioxide 10.0 L* 15.7 L Anion Gap 21 H 16 BUN 14 12 Creatinine 0.9 1.0 Estim Creat Clear Calc 101.1 79.1 eGFR > 60 > 60 BUN/Creatinine Ratio 16 12 Glucose [address] Glu mg/dL 283 H Hemoglobin A1c 11.5 H Calculated Osmolality 277 282 Calcium 9.2 9.4 Corrected Calcium 9.2 9.5 Phosphorus 1.8 L 1.4 L Magnesium 1.8 1.8 Total Bilirubin AST ALT Alkaline Phosphatase Troponin I Total Protein Albumin 4.2 D 3.9 Globulin Albumin/Globulin Ratio Triglycerides 69 Cholesterol 88 L LDL Cholesterol, Calc 38 HDL Cholesterol 36 L Cholesterol/HDL Ratio 2.4 L Lipase Beta-Hydroxybutyrate/Acetoacetate TSH 1.64 Ur Collection Type Urine Color Urine Clarity Urine pH Ur Specific [place] Urine Protein Urine Glucose (UA) Urine Ketones Urine Blood Urine Nitrite Urine Bilirubin Urine Urobilinogen (Auto) Ur Leukocyte Esterase Urine RBC Urine WBC Ur Squamous Epith Cells Urine Bacteria Ethyl Alcohol 03/13/24 09:15 WBC RBC Hgb Hct MCV MCH MCHC RDW Std Deviation Plt Count Neut % (Auto) Lymph % (Auto) [place] % (Auto) Eos % (Auto) Baso % (Auto) Neut # (Auto) Lymph # (Auto) [place] # (Auto) Eos # (Auto) Baso # (Auto) Immature Gran # (Auto) Absolute Nucleated RBC Immature Gran % Nucleated RBC % VBG pH 7.36 VBG pCO2 38 VBG pO2 89 H D VBG O2 Sat (Trey) 95 L VBG Base Excess -3 Sodium Potassium Chloride Carbon Dioxide Anion Gap BUN Creatinine Estim Creat Clear Calc eGFR BUN/Creatinine Ratio Glucose Estimated Ave Glu mg/dL Hemoglobin A1c Calculated Osmolality Calcium Corrected Calcium Phosphorus Magnesium Total Bilirubin AST ALT Alkaline Phosphatase Troponin I Total Protein Albumin Globulin Albumin/Globulin Ratio Triglycerides Cholesterol LDL Cholesterol, Calc HDL Cholesterol Cholesterol/HDL Ratio Lipase Beta-Hydroxybutyrate/Acetoacetate TSH Ur Collection Type Urine Color Urine Clarity Urine pH Ur Specific [place] Urine Protein Urine Glucose (UA) Urine Ketones Urine Blood Urine Nitrite Urine Bilirubin Urine Urobilinogen (Auto) Ur Leukocyte Esterase Urine RBC Urine WBC Ur Squamous Epith Cells Urine Bacteria Ethyl Alcohol Assessment & Plan Additional Assessment Additional Assessment: In brief this is a 38yo M admitted to the ICU for DKA a/p DKA- on insulin gtt and DKA protocol, q4labs, IVF, once AG is closed x2 will start subq insulin and SSI - pt will need short acting insulin at home - consult SW for glucose sensor - slow improvement in HCO3 GAYLE- improved from arrival with IVF Hypophos- replete with PO phos Anemia- mild and likely dilutional at this time cse d/w ICU team labs, imaging, records reviewed ~38min required for eval, exam, review, intervention, discussion and formulation of POC Provider Notation Provider Notation: Although this document has been carefully reviewed, there may still be some phonetic and other typographical errors. These errors are purely grammatical due to imperfections in the software program and should not be construed in any way to compromise the substance of the patient's medical care during this visit. Thank you for the opportunity and privilege in assisting you with this patient's care and management.
--- NOTE | 2024-03-13 11:19 | PC.CC ---
Addendum entered and electronically signed by Corie Carolina RPh 03/14/24 08:43: PA approved for products listed below until 03/14/25. Original Note: DKA with home insulin use meets clinical criteria for CGM coverage. Please consider 1) Freestyle Kayden 3 Plus Sensors #2 and 2) Freestyle [place] 3 Sparkill. Will submit prior authorization to insurance. When authorization is approved, patient will have $0 co-pay under [employer] plan.
--- NOTE | 2024-03-13 11:24 | ESPR_ITS ---
Documentation for date of: 03/13/24 Subjective Subjective Interval history: 03/13: Patient seen and examined at bedside. Per nursing, having adequate urine output apprx 1.5 L overnight. Denies any vomiting, no chest pain, no SOB. Abdomen tender on physical exam. Patient has not seen PCP since last June. Does not know how much insulin he takes and often runs out. Dietary team consulted for edcuation and glucometer. Most recent AG 11, biarb 21, Cr 0.9, K 3.2 repleted per DKA protocol. Continue to monitor and bridge with subcut insulin once AG closes again. Exam Vital Signs Temp Pulse Resp BP Pulse Ox O2 Del Method O2 Flow Rate 98.6 F 96 17 119/76 99 Room Air 10 03/13/24 07:00 03/13/24 09:00 03/13/24 09:00 03/13/24 09:00 03/13/24 09:00 03/13/24 07:00 03/13/24 04:00 Narrative Exam Constitutional: Thin male, no distress, cooperative Head: Normocephalic/Atraumatic Eyes: pupillary reflexes intact, no conjunctival injection ENMT: Dry mucous Membranes, No trauma or injury. Neck: Supple to palpation, No JVD CVS: RRR, S1 and S2 present RESP: lungs clear to auscultation GI: Normal BS, mild tenderness to deep palpation MSK: Full range of motion, No trauma or deformities or masses. Skin: Warm to touch, Dry. No rashes or lesions. No hematomas Neuro: diagnostic sales specialist II-XII grossly intact. Sensation grossly intact. Psych: (AAO) x3 . Appropriate mood and affect. Objective Labs 03/13/24 04:52 03/13/24 09:15 Labs: Laboratory Results - last 24 hr 03/12/24 03/12/24 03/12/24 18:11 21:18 21:52 WBC 6.8 RBC 5.31 Hgb 15.7 Hct 46.9 MCV 88 MCH 29.6 MCHC 33.5 RDW Std Deviation 38.3 Plt Count 292 Neut % (Auto) 74 Lymph % (Auto) 18 [place] % (Auto) 8 Eos % (Auto) 0 Baso % (Auto) 0 Neut # (Auto) 5.0 Lymph # (Auto) 1.2 [place] # (Auto) 0.5 Eos # (Auto) 0.0 Baso # (Auto) 0.0 Immature Gran # (Auto) 0.02 H Absolute Nucleated RBC 0.00 Immature Gran % 0 Nucleated RBC % 0 VBG pH 7.05 L 7.08 L VBG pCO2 28 L 22 L VBG pO2 49 50 VBG O2 Sat (Trey) 75 L 78 L VBG Base Excess -22 L -22 L Sodium 132 L 136 Potassium 3.9 3.9 Chloride 94 L 101 Carbon Dioxide < 10.0 L* < 10.0 L* Anion Gap 28 H 25 H BUN 17 14 Creatinine 1.4 H 1.2 Estim Creat Clear Calc 65.0 75.8 eGFR > 60 > 60 BUN/Creatinine Ratio 12 12 Glucose [address] H [address] Glu mg/dL Hemoglobin A1c Calculated Osmolality 274 L 277 Calcium 9.9 9.3 Corrected Calcium 9.9 9.3 Phosphorus 4.9 3.7 Magnesium 2.2 2.0 Total Bilirubin 0.7 AST 14 ALT 17 Alkaline Phosphatase 150 H Troponin I < 0.020 Total Protein 8.4 H Albumin 5.6 H 4.7 D Globulin 2.8 Albumin/Globulin Ratio 2.0 Triglycerides Cholesterol LDL Cholesterol, Calc HDL Cholesterol Cholesterol/HDL Ratio Lipase 22 Beta-Hydroxybutyrate/Acetoacetate 6.3 H TSH Ur Collection Type Clean Catch Urine Color Lt-Yellow Urine Clarity Clear Urine pH 5.5 Ur Specific [place] 1.026 Urine Protein 1+ A Urine Glucose (UA) 4+ A Urine Ketones 4+ A Urine Blood Negative Urine Nitrite Negative Urine Bilirubin Negative Urine Urobilinogen (Auto) Negative Ur Leukocyte Esterase Negative Urine RBC 1 Urine WBC < 1 Ur Squamous Epith Cells < 1 Urine Bacteria Rare Ethyl Alcohol < 3.0 03/13/24 03/13/24 03/13/24 01:38 04:52 05:05 WBC 6.1 RBC 4.24 L Hgb 12.6 L D Hct 35.7 L D MCV 84 MCH 29.7 MCHC 35.3 RDW Std Deviation 34.6 L Plt Count 217 D Neut % (Auto) 64 Lymph % (Auto) 25 [place] % (Auto) 11 Eos % (Auto) 0 Baso % (Auto) 0 Neut # (Auto) 3.9 Lymph # (Auto) 1.5 [place] # (Auto) 0.7 Eos # (Auto) 0.0 Baso # (Auto) 0.0 Immature Gran # (Auto) 0.02 H Absolute Nucleated RBC 0.00 Immature Gran % 0 Nucleated RBC % 0 VBG pH 7.29 L 7.32 L VBG pCO2 20 L 31 L D VBG pO2 103 H D 142 H D VBG O2 Sat (Trey) 96 D 96 VBG Base Excess -15 L -9 L Sodium 137 140 Potassium 3.9 3.7 Chloride 106 108 H Carbon Dioxide 10.0 L* 15.7 L Anion Gap 21 H 16 BUN 14 12 Creatinine 0.9 1.0 Estim Creat Clear Calc 101.1 79.1 eGFR > 60 > 60 BUN/Creatinine Ratio 16 12 Glucose [address] Glu mg/dL 283 H Hemoglobin A1c 11.5 H Calculated Osmolality 277 282 Calcium 9.2 9.4 Corrected Calcium 9.2 9.5 Phosphorus 1.8 L 1.4 L Magnesium 1.8 1.8 Total Bilirubin AST ALT Alkaline Phosphatase Troponin I Total Protein Albumin 4.2 D 3.9 Globulin Albumin/Globulin Ratio Triglycerides 69 Cholesterol 88 L LDL Cholesterol, Calc 38 HDL Cholesterol 36 L Cholesterol/HDL Ratio 2.4 L Lipase Beta-Hydroxybutyrate/Acetoacetate TSH 1.64 Ur Collection Type Urine Color Urine Clarity Urine pH Ur Specific [place] Urine Protein Urine Glucose (UA) Urine Ketones Urine Blood Urine Nitrite Urine Bilirubin Urine Urobilinogen (Auto) Ur Leukocyte Esterase Urine RBC Urine WBC Ur Squamous Epith Cells Urine Bacteria Ethyl Alcohol 03/13/24 09:15 WBC RBC Hgb Hct MCV MCH MCHC RDW Std Deviation Plt Count Neut % (Auto) Lymph % (Auto) [place] % (Auto) Eos % (Auto) Baso % (Auto) Neut # (Auto) Lymph # (Auto) [place] # (Auto) Eos # (Auto) Baso # (Auto) Immature Gran # (Auto) Absolute Nucleated RBC Immature Gran % Nucleated RBC % VBG pH 7.36 VBG pCO2 38 VBG pO2 89 H D VBG O2 Sat (Trey) 95 L VBG Base Excess -3 Sodium 140 Potassium 3.2 L D Chloride 108 H Carbon Dioxide 21.4 Anion Gap 11 BUN 10 Creatinine 0.9 Estim Creat Clear Calc 87.9 eGFR > 60 BUN/Creatinine Ratio 11 L Glucose [address] Glu mg/dL Hemoglobin A1c Calculated Osmolality 278 Calcium 8.9 Corrected Calcium 8.9 Phosphorus 1.3 L Magnesium 1.7 Total Bilirubin AST ALT Alkaline Phosphatase Troponin I Total Protein Albumin 4.0 Globulin Albumin/Globulin Ratio Triglycerides Cholesterol LDL Cholesterol, Calc HDL Cholesterol Cholesterol/HDL Ratio Lipase Beta-Hydroxybutyrate/Acetoacetate TSH Ur Collection Type Urine Color Urine Clarity Urine pH Ur Specific [place] Urine Protein Urine Glucose (UA) Urine Ketones Urine Blood Urine Nitrite Urine Bilirubin Urine Urobilinogen (Auto) Ur Leukocyte Esterase Urine RBC Urine WBC Ur Squamous Epith Cells Urine Bacteria Ethyl Alcohol ABG Interpretation ABG results: 03/12/24 03/12/24 03/13/24 18:11 21:52 01:38 VBG pH 7.05 L 7.08 L 7.29 L VBG pCO2 28 L 22 L 20 L VBG pO2 49 50 103 H D VBG Base Excess -22 L -22 L -15 L 03/13/24 03/13/24 05:05 09:15 VBG pH 7.32 L 7.36 VBG pCO2 31 L D 38 VBG pO2 142 H D 89 H D VBG Base Excess -9 L -3 Quality Measures Quality Measures none Assessment & Plan Assessment Current Active Medications: Generic Name Dose Route Start Last Admin Trade Name Freq PRN Reason Stop Dose Admin Acetaminophen 650 mg 03/12/24 21:14 Acetaminophen 325 Mg Tablet PO 04/11/24 21:13 Q6H PRN Fever >101.5 Acetaminophen 650 mg 03/12/24 21:14 Acetaminophen 325 Mg Tablet PO 04/11/24 21:13 Q6H PRN PAIN SCALE 1-3 (mild Dextrose 25 ml 03/12/24 20:42 Dextrose 50%-Water Inj 50 Ml Syringe IV [id number] PRN Blood Sugar - Low Enoxaparin Sodium 40 mg 03/13/24 09:00 03/13/24 08:02 Enoxaparin Sod Inj 40 Mg/0.4 Ml Syringe SC 03/27/24 08:59 40 mg QDAY NANCY Administration Potassium Chloride 10 meq in 100 mls @ 100 mls/hr 03/12/24 20:42 Kcl Ivpb IV 04/11/24 20:41 .Q1H PRN IF POTASSIUM LESS THAN 3.3 Magnesium Sulfate 2 gm in 50 mls @ 25 mls/hr 03/12/24 20:42 Magnesium Sulfate Ivpb IV 04/11/24 20:41 .Q2H PRN PER DKA PROTOCOL Insulin Human Regular 100 unit 100 mls @ 6.486 mls/hr 03/12/24 20:42 03/13/24 08:00 / IV Miscellaneous Supplies IV 04/11/24 20:41 0.1 unit/kg/hr .[id number] PRN 6.486 mls/hr PER PROTOCOL Titration Protocol 0.1 UNIT/KG/HR Dextrose/Lactated Ringer's 1,000 mls @ 250 mls/hr 03/12/24 20:42 D5-Lr IV 04/11/24 20:41 .Q4H PRN PER PROTOCOL Lactated Ringer's 1,000 mls @ 250 mls/hr 03/12/24 20:42 Lactated Ringers IV 03/13/24 20:41 .Q4H PRN PER PROTOCOL Potassium Chloride 20 meq/ 1,010 mls @ 250 mls/hr 03/12/24 20:42 03/13/24 02:00 Lactated Ringer's IV 04/11/24 20:41 0 mls/hr .Q4H3M PRN Infusion K LEVEL 3.3 TO 5.3mM/L Potassium Chloride 40 meq/ 1,020 mls @ 250 mls/hr 03/12/24 20:42 Lactated Ringer's IV 04/11/24 20:41 .Q4H5M PRN K LEVEL < 3.3 mM/L Potassium Cl/Dextrose/Lact Ringer's 20 meq in 1,000 mls @ 250 mls/hr 03/12/24 20:42 03/13/24 07:07 Kcl 20 Meq/L In D5-Lr IV 04/11/24 20:41 250 mls/hr .Q4H PRN Administration K LEVEL 3.3 TO 5.3 mM/L Ondansetron HCl 4 mg 03/12/24 21:14 03/12/24 23:34 Ondansetron Inj 2 Mg/Ml Inj 2 Ml IV 04/11/24 21:13 4 mg Q6H PRN Administration NAUSEA OR VOMITING Protocol Plan Noble Leo is 38 yr male with PMH of IDT2DM, htn, and previous admission for DKA who presented to ED due to SOB, n/v, chest discomfort. He was admitted to ICU for DKA management after BHB 6.3, AG 28. Neuro no active problems CVS #History of hypertension Currently normotensive -home med is catptopril 25mg daily. -hold due to underlying GAYLE Resp no active problems GI no active problems Renal #GAYLE-resolved BUN/cr <20 indicating intrarenal etiology. Maybe have progressed from pre renal due to vomiting/poor oral intake/dehydration. -maintenance fluids -avoid nephrotoxic agents -daily IOs -daily CMP #Anion gap metabolic acidosis-resolving Secondary to DKA and severe dehydration Patient's pH was 7.05, BHB was 6.5 and bicarb was less than 10. Patient has history of IDDM -DKA protocol -close gap x2 -monitor bicarb -start subcut insulin after gap close x2 #Hypophosphatemia In setting of DKA and dilution. -replete per DKA protocol Endocrine #DKA Likely secondary to poor intake in the last several days as well as noncompliant with medications On presentation patient had a pH of 7.05, bicarb was less than 10, anion gap of 28 and BHB of 6.3 with a blood glucose of 238 Plan: -N.p.o. -Zofran as needed -IV fluid resuscitation and insulin drip as per DKA protocol -potassium >4 -Follow-up with lipid panel -Referral to registered dietitian for education and glucometer -follow up in residents clinic ID/Skin no active problems Hematology no active problems Hospital Maintenance: DVT PPx: Lovenox GI PPx: None IV lines: Left peripheral IV upper extremity Gómez: No Code Status: Full code Dispo: Patient will remain in the ICU for further management of his DKA The patient's management plan was discussed with my attending physician Dr. Brown and senior Dr. Yanes. Jinny Montejo, PGY-1
[2024-03-13] MEDS: Magnesium Sulfate 2 GM Ivpb 2 GM/50 ML BAG IV (11:44)
[2024-03-13] MEDS: POTASSIUM CHL 10 mEq IVPB 10 MEQ/100 ML BAG 100 MEQ IV ×2 (11:45→12:47)
[2024-03-13] MEDS: POT CHL ADDITIVE 40 MEQ in RINGERS LACTATED 1000 ML 1,000 ML 250 MEQ IV (11:45)
--- NOTE | 2024-03-13 13:40 | PC.SS ---
Update: Patient to be downgraded from ICU.
[2024-03-13 13:44] LABS: Base Excess, Venous -2 (-3-3); O2 Saturation, Venous 96 % (96-97); PCO2, Venous 30 mmHg (36-56); PO2, Venous 86 mmHg (15-58); pH, Venous 7.45 (7.33-7.66)
[2024-03-13 14:12] LABS: Albumin, Serum 3.7 gm/dL (3.5-5.0); Anion Gap 10 (7-16); BUN/Creatinine Ratio 10 Ratio (12-20); Blood Urea Nitrogen 8 mg/dL (9-23); Calcium (Corrected) 9.2 mg/dL (8.5-10.1); Carbon Dioxide 22.4 mMol/L (20.0-31.0); Chloride 110 mMol/L (98-107); Creatinine (Component) 0.8 mg/dL (0.6-1.3); Estimated Creatinine Clearance 98.9 mL/min (>60); Glucose 86 mg/dL (74-106); Magnesium 2.3 mg/dL (1.6-2.6); Osmolality,Calculated 280 (275-295); Phosphorous 1.4 mg/dL (2.4-5.1); Potassium 3.8 mMol/L (3.4-5.1); Sodium 142 mMol/L (136-145); eGFR > 60 See Note
[2024-03-13] MEDS: INSULIN GLARGINE (Lantus) 5 UNIT/0.05 ML (PER 5 UNITS) 30 UNIT SC (15:55)
--- NOTE | 2024-03-13 15:55 | PC.SS ---
Update: STRETCHER LEVELER OPERATOR confirmed that patient will receive diabetic education from dietary staff. In addition, pharmacy confirmed that patient possesses coverage for diabetic censor. STRETCHER LEVELER OPERATOR updated ICU tariff supervisor and bedside nurse.
--- NOTE | 2024-03-13 16:03 | PC.SS ---
SUPPLY CHAIN ANALYST conducted bedside contact with the patient conduct initial assessment and to discuss discharge planning.? Patient confirmed demographic information.? Patient resides at home with family.? Patient does not utilize any form of DME to assist with ambulation.? Patient does not utilize home oxygen.? Patient currently utilizing 2L of oxygen.? Patient describes the ability to complete ADL?s independently.? Patient identified sister, Sendy Bailey ; as medical surrogate decision maker.? Patient?s PCP is CLINTON Watters.? Patient does not participate with dialysis.? Patient is diabetic insulin dependent.? Patient utilizes [facility] for medication services.? Plan is for the patient to return home at the time of discharge.? Family will provide transportation on behalf of the patient.? No further intervention required at this time, social service liaison will be available to address any further concerns.? Next of Kin: Sendy Bailey D/C Plan: Home
--- NOTE | 2024-03-13 17:47 | PD.RESEVENT ---
Documentation for date of: 03/13/24 Event Note Event Note: 38-year-old male with past medical history significant for type 2 diabetes and hypertension was admitted to ICU for management of DKA. Patient started on insulin drip until anion gap closed x 2. Patient bicarb improved greater than 20. Patient transition to insulin glargine. Patient taken off drip, tolerating oral diet well. Plan to downgrade to floors for further management. Amadeo Farris MD PGY?1
[2024-03-13] MEDS: INSULIN LISPRO (AdmeLOG) 1 UNIT/0.01 ML UNIT 5 UNIT SC (21:10)
[2024-03-14] VITALS: BP 119/74; PULSE 80; RESP 16; TEMP 37.1; O2SAT 99
[2024-03-14 04:00] VITALS: BP 115/70; PULSE 76; RESP 17; TEMP 37; O2SAT 99
[2024-03-14 05:52] LABS: Basophils % (Auto) 1 % (0-2.5); Eosinophils % (Auto) 1 % (0-10); Hematocrit 31.8 % (41.0-53.0); Hemoglobin 11.3 g/dL (13.5-16.0); Immature Granulocytes % (Auto) 0 % (0-0); Immature Granulocytes Auto 0.01 Thou/mm3 (0.00-0.00); Lymphocytes # (Auto) 1.7 Thou/mm3 (1.0-4.8); Lymphocytes % (Auto) 49 % (10-50); Mean Corpuscular HGB Conc 35.5 g/dl (31.0-37.0); Mean Corpuscular Hemoglobin 30.1 pg (25.0-35.0); Mean Corpuscular Volume 85 fL (80-100); Monocytes # (Auto) 0.4 Thou/mm3 (0.0-0.8); Monocytes % (Auto) 12 % (0-12); Neutrophils # (Auto) 1.3 Thou/mm3 (1.8-7.7); Neutrophils % (Auto) 38 % (37-80); Nucleated Red Blood Cell % 0 /100 WBC (0); Platelet Count 192 Thou/mm3 (140-440); RDW Standard Deviation 34.4 fL (35.1-43.9); Red Blood Count 3.76 Miln/mm3 (4.50-5.90); White Blood Count 3.5 Thou/mm3 (3.8-10.6)
[2024-03-14 08:00] VITALS: BP 114/72; PULSE 87; RESP 17; TEMP 36.8; O2SAT 99
[2024-03-14] MEDS: ENOXAPARIN SOD INJ 40 MG/0.4 ML SYRINGE SC (09:00)
[2024-03-14] MEDS: INSULIN GLARGINE (Lantus) 5 UNIT/0.05 ML (PER 5 UNITS) 30 UNIT SC (10:00)
[2024-03-14 12:00] VITALS: BP 117/76; PULSE 89; RESP 16; TEMP 36.7; O2SAT 98
[2024-03-14 12:21] LABS: Alanine Aminotransferase 10 U/L (10-49); Albumin, Serum 3.7 gm/dL (3.5-5.0); Albumin/Globulin Ratio 2.3 (1.2-2.2); Alkaline Phosphatase 105 U/L (46-116); Anion Gap 8 (7-16); Aspartate Amino Transferase 13 U/L (0-34); BUN/Creatinine Ratio 13 Ratio (12-20); Bilirubin,Total 0.4 mg/dL (0.3-1.2); Blood Urea Nitrogen 9 mg/dL (9-23); Calcium 8.8 mg/dL (8.3-10.6); Carbon Dioxide 27.9 mMol/L (20.0-31.0); Chloride 103 mMol/L (98-107); Creatinine (Component) 0.7 mg/dL (0.6-1.3); Globulin 1.6 gm/dL (2.3-3.5); Glucose 111 mg/dL (74-106); Osmolality,Calculated 277 (275-295); Potassium 3.3 mMol/L (3.4-5.1); Sodium 139 mMol/L (136-145); Total Protein 5.3 gm/dL (5.7-8.2); eGFR > 60 See Note
--- NOTE | 2024-03-14 13:40 | ESDS_ITS ---
<Statement entered by Av Gray MD - 03/14/24 13:47> I saw and examined the patient, and I agree with current management stated by Dr Brenton MD,PGY1. Plan of care was discussed with the attending physician and resident physician. Disclaimer: Despite multiple revisions, due to the dictation software being used, the document bellow may not be free of grammatical errors including phonetic/typographic errors. However, this does not deter from our commitment to providing health care in the patient's best interest in mind. Dr. Marina MD, PGY 2 Planned Discharge Date 03/14/24 DS: Providers Provider Date of admission: 03/12/24 21:15 Primary care physician: Lew Hedrick MD Admitting Provider: Mart Guardado MD Attending Provider on Admission: Mart Guardado MD Consults: 03/12/24 20:42 Referral Registered Dietitian Routine Comment: Attending Provider on DC: Sanaz Barker MD Discharging Provider: Amadeo Farris MD DS: Diagnosis Problem List Completed Was Problem List Reviewed/Reconciled?: Yes Hospital Course Hospital Course Hospital course: 38 male with past medical history of insulin-dependent diabetes mellitus, previous hospital admissions for DKA, EtOH use, pancreatitis and high blood pressure presented with a 3-day history of shortness of breath and decreased p.o. intake with generalized weakness. Patient explained that he recently returned from a trip to [place] about 2 weeks ago prior to admission after staying there since January. In [place] he was found to have DKA and he was admitted for a couple of days. He did not have any sick contacts and was doing well since he returned, however he has not been compliant with his insulin checks. He states that usually when he checks his fasting blood glucose he is in the 90s to 130s range however he does not check for the remainder of the day. He has not seen his PCP ' for a while' but does state that he has been taking his insulin as previously prescribed, though he did not tell me exactly how many units he has been taking. Patient was found to have bicarb less than 10, anion gap greater than 28, significant urine ketones. Admitted to ICU for DKA, started on insulin drip. Patient DKA resolved as documented by repeated serum test showing anion gap closure, bicarb greater than 20. Patient transitioned to insulin glargine 30 units. Patient able to tolerate oral diet well, downgrade to floors for further management. Following day patient was doing well, anion gap remained closed. Patient medically cleared and stable for discharge. Discharge plan: You are being discharged with Lantus 30 units daily Please continue all other medications as previously prescribed Please follow-up with PCP in 1-2 weeks Please return to ED if you have new or worsening symptoms Diagnoses: #DKA, resolved #GAYLE, resolved #Hypophosphatemia #Insulin-dependent diabetes #Anemia Plan of care discussed with senior resident Dr. Gray PGY?[address] Barker. Amadeo Farris MD PGY-1 Time Spent with Patient Time attestation: Total time spent providing and/or coordinating discharge services: Exam Vital Signs Temp Pulse Resp BP Pulse Ox O2 Del Method O2 Flow Rate 98.3 F 87 17 114/72 99 Room Air 10 03/14/24 08:00 03/14/24 08:00 03/14/24 08:00 03/14/24 08:00 03/14/24 08:00 03/14/24 08:00 03/13/24 04:00 Narrative Exam Constitutional: Thin male, no distress, cooperative Head: Normocephalic/Atraumatic Eyes: pupillary reflexes intact, no conjunctival injection ENMT: Moist mucous Membranes, No trauma or injury. Neck: Supple to palpation, No JVD CVS: RRR, S1 and S2 present RESP: lungs clear to auscultation GI: Normal BS, no tenderness to deep palpation, nondistended MSK: Full range of motion, No trauma or deformities or masses. Skin: Warm to touch, Dry. No rashes or lesions. 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 Sensation grossly intact. Psych: (AAO) x3 . Appropriate mood and affect. Discharge Plan Plan Patient Disposition: HOME (Self Care) Patient condition on transfer: Stable Care Plan Goals: You are being discharged with Lantus 30 units daily Please continue all other medications as previously prescribed Please follow-up with PCP in 1-2 weeks Please return to ED if you have new or worsening symptoms Prescriptions/Referrals Prescriptions/Med Rec: New insulin glargine [Lantus Solostar U-100 Insulin] 100 unit/mL (3 mL) insulin pen 30 unit subcut QPM Qty: 15 4RF (DME) pen needle, diabetic [Ultra-Thin II Ins Pen [place]] 29 gauge x 1/2 needle See Rx Instructions .Route Qty: 100 0RF Rx Instructions: As directed Baqsimi 3 mg/actuation spray,non-aerosol 3 mg intranasal QDAY PRN (Reason: hypoglycemia) Qty: 2 0RF (DME) FreeStyle [place] 3 Plus Sensor Device See Rx Instructions .Route Qty: 1 3RF Rx Instructions: As directed Continued (DME) lancets Misc See Rx Instructions .Route Qty: 100 0RF Rx Instructions: As directed (DME) lancets [Accu-Chek Fastclix Lancet Drum] Misc See Rx Instructions .Route Qty: 100 1RF Rx Instructions: As directed (DME) pen needle, diabetic 31 gauge x 1/4 needle See Rx Instructions .Route Qty: 100 0RF Rx Instructions: As directed (DME) blood-glucose meter [Accu-Chek Guide Glucose Meter] Misc See Rx Instructions .Route Qty: 1 1RF Rx Instructions: As directed (DME) Accu-Chek Guide test strips Strip See Rx Instructions .Route Qty: 100 0RF Rx Instructions: As directed (DME) Accu-Chek Guide test strips Strip See Rx Instructions .Route Qty: 25 0RF Rx Instructions: As directed captopril 25 mg Tablet 25 mg PO DAILY Qty: 30 0RF Changed insulin lispro 100 unit/mL insulin pen 5 unit subcut TIDWMEAL Qty: 15 1RF Rx Instructions: 3 times daily with meals Discontinued insulin glargine [Basaglar KwikPen U-100 Insulin] 100 unit/mL (3 mL) insulin pen 25 unit subcut QPM Qty: 15 1RF (DME) FreeStyle Kayden 3 Sensor Device See Rx Instructions .Route Qty: 1 2RF Rx Instructions: As directed Referrals: Lew Hedrick MD [Primary Care Provider] - Patient/Caregiver Discharge Instructions Discharge Activity: activity as tolerated Education Materials: CGM, Diabetes Treat Severe Foot Infecs, Insulin How to Use and Where to Inject, Diabetes: Inspecting Your Feet, Diabetes Carbs Fats Protein, Insulin Injection Steps, Foot Care Diabetes Steps Print Language: Swedish Stand Alone Forms: Ariela Award Info., Patient Portal Info Letter Discharge Order Discharge Orders: Discharge (Routine); Ordered 03/14/24 Ordered By: Av Gray Quality Discharge Quality Measures VTE prophylaxis Attestestation MD Attestation I attest that I was physically present for the evaluation, physical examination, lab and imaging review of the patient with the residents. I discussed the case with the residents and agree with the findings and plans of care as documented above. At bedside today, patient states he is feeling well and does not have any complaints. Has been able to tolerate his diet well. Vital signs have been stable. Blood glucose levels have been stable with Lantus. Lab results are stable except for potassium of 3.3, which was repleted accordingly. We will discharge patient home on Lantus 30. Advised patient extensively on medication compliance, patient on agreement. Sanaz Barker MD
[2024-03-14] MEDS: POTASSIUM CHLORIDE 20 mEq TABCR 40 MEQ PO (13:48)
== END 2024-03-14 16:17 | disposition home or self-care (01) | DRG 420 ==
LOC: SERX 21:05 → SERHOLD 22:00 → S2SX 03-13 06:23 → S3SX 03-13 18:44
PROVIDERS: Physician Assistant; Student in an Organized Health Care Education/Training Program; Admitting Provider Internal Medicine; Emergency Provider Emergency Medicine; PCP Family Medicine; Visit Provider Internal Medicine
DX: E11.10 Type 2 diabetes mellitus with ketoacidosis without coma (principal); I10 Essential (primary) hypertension; N17.9 Acute kidney failure, unspecified; E86.0 Dehydration; E83.39 Other disorders of phosphorus metabolism; F17.210 Nicotine dependence, cigarettes, uncomplicated; D64.9 Anemia, unspecified; Z91.148 Patient's other noncompliance with medication regimen for other reason; Z79.4 Long term (current) use of insulin; Z79.899 Other long term (current) drug therapy
CPT/HCPCS: 36415; 71045; 80053; 80061; 80069; 80307; 80320; 81001; 82010; 82803; 83036; 83690; 83735; 84100; 84443; 84484; 85025; 87081; 93225; J1650; J1815; J2405; J3475; J3480; J7030; J7120; A9270; G0480

== ENCOUNTER 2024-09-03 14:36 | Inpatient (IN) | payer MEDICAID, SELFPAY ==
[2024-09-03 15:12] VITALS: BMI 19.5
[2024-09-03 15:15] VITALS: BP 109/76; PULSE 106; RESP 16; TEMP 37.6; O2SAT 99
--- NOTE | 2024-09-03 15:17 | XR_ITS ---
Examination: Tibia-Fibula, left , 2 views Technique: Tibia-fibula AP lateral 2 views Date and time of exam: September 03, 2024 1526 hours INDICATIONS: Redness swelling and pain involving the lower leg beginning 5 days ago. LUNGS: No fracture. No dislocation. No cortical bone destruction. Soft tissue swelling anterior to the mid tibia IMPRESSION: Soft tissue swelling anterior to the mid tibia
--- NOTE | 2024-09-03 15:18 | XR_ITS ---
Examination: Duplex scan of the lower extremity, unilateral left Date and time of exam: September 03, 2024 1534 hours INDICATIONS: Left lower leg pain beginning 5 days ago Technique: Duplex scan of the extremity veins using B-mode/grayscale imaging and Doppler spectral analysis and color flow Attention is directed to internal echogenicity, compression and augmentation involving these veins, color flow assessment, spectral analysis Findings: Major deep venous structures in the extremity demonstrate normal course and caliber. There is no evidence of deep vein thrombosis. Normal color flow and spectral analysis Impression: Negative for DVT..
--- NOTE | 2024-09-03 15:18 | PD.EDRME ---
Rapid Medical Screening Exam RME Arrival date/time: 09/03/24 14:36 39-year-old male with history significant for diabetes presents the Emergency Department today complaints of left lower extremity abscess Chief Complaint: Skin/Abscess/Foreign Body Vital signs: Vital Signs Temperature 99.7 F 09/03/24 15:15 Pulse Rate 106 H 09/03/24 15:15 Respiratory Rate 16 09/03/24 15:15 Blood Pressure 109/76 09/03/24 15:15 Pulse Oximetry (%) 99 09/03/24 15:15 Oxygen Delivery Method Room Air 09/03/24 15:15
[2024-09-03 16:29] LABS: Base Excess, Venous -3 (-3-3); Lactate (Lactic Acid) 1.3 mMol/L (0.4-2.0); O2 Saturation, Venous 58 % (96-97); PCO2, Venous 37 mmHg (36-56); PO2, Venous 31 mmHg (15-58); pH, Venous 7.37 (7.33-7.66)
[2024-09-03 16:33] LABS: Basophils # (Auto) 0.1 Thou/mm3 (0.0-0.2); Basophils % (Auto) 1 % (0-2.5); Eosinophils # (Auto) 0.0 Thou/mm3 (0.0-0.5); Eosinophils % (Auto) 0 % (0-10); Hematocrit 36.4 % (41.0-53.0); Hemoglobin 12.5 g/dL (13.5-16.0); Immature Granulocytes Auto 0.02 Thou/mm3 (0.00-0.00); Lymphocytes # (Auto) 1.2 Thou/mm3 (1.0-4.8); Lymphocytes % (Auto) 18 % (10-50); Mean Corpuscular HGB Conc 34.3 g/dl (31.0-37.0); Mean Corpuscular Hemoglobin 29.6 pg (25.0-35.0); Mean Corpuscular Volume 86 fL (80-100); Monocytes # (Auto) 1.0 Thou/mm3 (0.0-0.8); Monocytes % (Auto) 15 % (0-12); Neutrophils # (Auto) 4.4 Thou/mm3 (1.8-7.7); Neutrophils % (Auto) 65 % (37-80); Nucleated Red Blood Cell # 0.00 Thou/mm3 (0.00-0.00); Nucleated Red Blood Cell % 0 /100 WBC (0); Platelet Count 264 Thou/mm3 (140-440); RDW Standard Deviation 41.7 fL (35.1-43.9); Red Blood Count 4.22 Miln/mm3 (4.50-5.90); White Blood Count 6.7 Thou/mm3 (3.8-10.6)
[2024-09-03 16:43] LABS: Beta Hydroxybutyrate 5.2 mmol/L (<0.6)
[2024-09-03 16:49] LABS: Glucose Estimated Average 252 mg/dL (80-131); Hemoglobin A1C 10.4 % Hgb (4.8-6.0)
[2024-09-03 16:56] LABS: INR 1.0 (0.9-1.3); Prothrombin Time 11.2 Seconds (9.0-12.2)
[2024-09-03 17:03] LABS: Sed Rate (ESR) 57 mm/hr (0-15)
[2024-09-03 17:04] LABS: Alanine Aminotransferase 29 U/L (10-49); Albumin, Serum 4.2 gm/dL (3.5-5.0); Albumin/Globulin Ratio 1.4 (1.2-2.2); Alkaline Phosphatase 108 U/L (46-116); Anion Gap 18 (7-16); Aspartate Amino Transferase 18 U/L (0-34); BUN/Creatinine Ratio 14 Ratio (12-20); Bilirubin,Total 0.6 mg/dL (0.3-1.2); Blood Urea Nitrogen 11 mg/dL (9-23); C-Reactive Protein 6.2 mg/dL (0.0-0.9); Calcium 9.4 mg/dL (8.3-10.6); Calcium (Corrected) 9.4 mg/dL (8.5-10.1); Carbon Dioxide 21.4 mMol/L (20.0-31.0); Chloride 96 mMol/L (98-107); Creatinine (Component) 0.8 mg/dL (0.6-1.3); Estimated Creatinine Clearance 98.4 mL/min (>60); Globulin 2.9 gm/dL (2.3-3.5); Glucose 242 mg/dL (74-106); Osmolality,Calculated 277 (275-295); Potassium 3.9 mMol/L (3.4-5.1); Procalcitonin 0.08 ng/ml (0.0-0.49); Sodium 135 mMol/L (136-145); Total Protein 7.1 gm/dL (5.7-8.2); eGFR > 60 See Note
[2024-09-03 20:55] VITALS: BP 132/85; PULSE 95; PULSE 98; RESP 16; RESP 18; TEMP 37; O2SAT 99
[2024-09-03] MEDS: SODIUM CHLORIDE 0.9% 1000 ML 1,000 ML 999 ML IV ×2 (21:06)
--- NOTE | 2024-09-03 21:09 | EDNOTE_ITS ---
ED Skin Abcess FB-RME/HPI General Chief complaint: Skin/Abscess/Foreign Body Stated complaint: Left lower leg abscess Time Seen by Provider: 09/03/24 20:46 Arrival date/time: 09/03/24 14:36 RME / HPI RME / HPI narrative: 09/03/24 14:36 39-year-old male with history significant for diabetes presents the Emergency Department today complaints of left lower extremity abscess DR. MEJIA MAIN ED EVALUATION: 39 y/o male with Hx of Type II DM and HTN presents to ED with severe pain, redness, and swelling to the LLE x 5 days. Patient also reports numbness and tingling to the BL feet. Related Data Previous Rx's ?Medication ?Instructions ?Recorded lancets #100 ea 09/20/21 lancets (Accu-Chek Fastclix Lancet #100 ea 01/02/23 Drum) pen needle, diabetic 31 gauge x #100 ea 01/02/23 1/4 blood sugar diagnostic (Accu-Chek #100 ea 03/14/24 Guide test strips) blood sugar diagnostic (Accu-Chek #25 ea 03/14/24 Guide test strips) blood-glucose meter (Accu-Chek #1 ea 03/14/24 Guide Glucose Meter) blood-glucose sensor (FreeStyle #1 ea 03/14/24 Kayden 3 Plus Sensor device) captopril 25 mg tablet 25 mg PO DAILY #30 tabs 02/15 glucagon 3 mg/actuation nasal 3 mg intranasal QDAY PRN 03/14/24 spray (Baqsimi) hypoglycemia #2 ea insulin glargine 100 unit/mL (3 30 unit (0.3 mL) subcu t QPM #15 mL 03/14/24 mL) subcutaneous pen (Lantus Solostar U-100 Insulin) insulin lispro 100 unit/mL 5 unit (0.05 mL) subcut TID WMEAL 03/14/24 subcutaneous pen #15 mL pen needle, diabetic 29 gauge x #100 ea 03/14/24 1 (Ultra-Thin II Insulin Pen [place]) Allergies Allergy/AdvReac Type Severity Reaction Status Date / Time No Known Allergies Allergy Verified 09/03/24 14:39 Review of Systems Review of Systems Systems Reviewed: All systems reviewed, normal except as documented Past Medical History Past Medical History CARDIAC: Positive Cardiac Disorders, Hypercholesterolemia and Hypertension ENDOCRINE: Positive Endocrine Disorders and Diabetes Mellitus Type 2 ED Exam Narrative Physical exam: GENERAL APPEARANCE: alert and oriented x 4, well-developed, well-nourished, no acute distress VITALS: All vitals were reviewed and the pulse ox is 99% on room air, which is normal according to my interpretation. HEENT: Normocephalic, atraumatic; pupils equal, round, reactive to light; EOMI; mucous membranes pink, moist; oropharynx clear NECK: Supple LUNGS: CTABL; no wheezes, no rales, no rhonchi HEART: Regular rate, regular rhythm; normal S1, S2; no murmurs ABDOMEN: non distended; normal BS; soft, no tenderness, no guarding, no rebound; no masses, no organomegaly, no hernia BACK: no CVA tenderness EXTREMITIES: atraumatic; no edema LLE: increased warmth, erythematous fluctuant mass, ~5 cm in diameter NEUROLOGIC: awake; alert and oriented x4; cranial nerves II-XII grossly intact; no focal sensory or motor deficits PSYCHIATRIC: appropriate mood and affect SKIN: warm, dry, normal color; no rashes Course Quality Measures none Orders Category Date Time Status Bedside Blood Glucose NOW Care 09/03/24 15:18 Active IV [Insert IV] STAT Care 09/03/24 20:58 Active US venous doppler LE LT Stat Exams 09/03/24 15:18 Completed XR tibia fibula LT 2V Stat Exams 09/03/24 15:17 Completed A1C [Glycohemoglobin w (eAG)] Stat Lab 09/03/24 16:11 Completed BMP [Basic Metabolic Panel] Stat Lab 09/03/24 23:29 Completed Beta Hydroxybutyrate Stat Lab 09/03/24 16:11 Completed Blood Culture (Lab) Stat Lab 09/03/24 16:18 Received CBC Stat Lab 09/03/24 16:11 Completed CMP [Comprehensive Metabolic Panel] Stat Lab 09/03/24 16:11 Completed CRP [C-Reactive Protein] Stat Lab 09/03/24 16:11 Completed ESR [Sed Rate (ESR)] Stat Lab 09/03/24 16:11 Completed Lactic Acid [Lactate (Lactic Acid)] Stat Lab 09/03/24 16:11 Completed PT [Prothrombin Time with INR] Stat Lab 09/03/24 16:11 Completed Procalcitonin Stat Lab 09/03/24 16:11 Completed VBG [Venous Blood Gas] Stat Lab 09/03/24 16:11 Completed VBG [Venous Blood Gas] Stat Lab 09/03/24 23:54 Ordered Lidocaine 1% 20 ml [Xylocaine 1% 20 ML] Med 09/03/24 21:18 Discontinued 10 ml INFL X1 ONE Morphine Inj Med 09/03/24 22:25 Discontinued 5 mg IVP X1 ONE Ondansetron Inj [Zofran Inj] Med 09/03/24 22:25 Discontinued 4 mg IVP X1 ONE Sodium Chloride 0.9% 1000 ml [Ns] 1,000 ml Med 09/03/24 21:00 Discontinued IV 999 mls/hr Sodium Chloride 0.9% 1000 ml [Ns] 1,000 ml Med 09/03/24 21:00 Discontinued IV 999 mls/hr cefTRIAXone/D5w 1gm IV premix [Rocephin/D5w 1gm IV Med 09/03/24 21:31 Discontinued premix] 1 gm in 50 ml IV X1 Vital Signs Vital signs: Vital Signs Temperature 99.7 F 09/03/24 15:15 Pulse Rate 106 H 09/03/24 15:15 Respiratory Rate 16 09/03/24 15:15 Blood Pressure 109/76 09/03/24 15:15 Pulse Oximetry (%) 99 09/03/24 15:15 Oxygen Delivery Method Room Air 09/03/24 15:15 PROCEDURES: Abscess I/D Site: lower extremity Side (if applicable): left Sedation/analgesia: none Local Anesthetic: lidocaine 1% Amount of anesthesia used (mL): 3 Technique: incised with #11 blade Amount of fluid expressed (mL): 50 Irrigation: Yes Packing used?: plain Complications: bleeding Skin / Abscess / Foreign Body MDM Narrative MDM Narrative:: Scribe Attestation: Agnes Patel, am scribing for and in the presence of Dr. Mejia. Provider Notation: Although this document has been carefully reviewed, there may still be some phonetic and other typographical errors.? These errors are purely grammatical due to imperfections in the software program and should not be construed in any way to? compromise the substance of the patient's medical care during this visit. Patient data External records reviewed:: [facility] previous records (Reviewed prior ED records from 03/12/24. Patient was seen for DKA (diabetic ketoacidosis).) Clinical information provided by:: patient Social determinants that could affect healthcare access:: none Patient has the following chronic illnesses:: Hypercholesterolemia, Hypertension, Diabetes Mellitus Type 2 How is presenting disease/condition affected by chronic disease/condition?: exacerbated by Evaluation data The following diagnostics were reviewed and interpreted by me:: lab results and radiology exam(s) Lab and/or radiology exams considered but not ordered:: None Interpretation Summary: RADIOLOGY Tibia/Fibula X-Ray: FINDINGS: No fracture. No dislocation. No cortical bone destruction. Soft tissue swelling anterior to the mid tibia IMPRESSION: Soft tissue swelling anterior to the mid tibia Venous Doppler Study: Findings: Major deep venous structures in the extremity demonstrate normal course and caliber. There is no evidence of deep vein thrombosis. Normal color flow and spectral analysis Impression: Negative for DVT. Medications / Prescriptions Medications or Prescriptions considered but not ordered:: None Medication administrations:: Medication Administration History Dextrose (Dextrose 50%-Water Inj 50 Ml Syringe) 25 ml IV [id number] PRN PRN Reason: Blood Sugar - Low Heparin Sodium (Porcine) (Heparin Sod Inj 5000 Unit/Ml Vial) 5,000 unit SC Q12HR NANCY Stop: 09/18/24 08:59 Potassium Chloride (Kcl Ivpb) 10 meq in 100 mls @ 100 mls/hr IV .Q1H PRN PRN Reason: IF POTASSIUM LESS THAN 3.3 Stop: 10/03/24 23:54 Magnesium Sulfate (Magnesium Sulfate Ivpb) 2 gm in 50 mls @ 25 mls/hr IV .Q2H PRN PRN Reason: PER DKA PROTOCOL Stop: 10/03/24 23:54 Insulin Human Regular 100 unit (/ IV Miscellaneous Supplies) 100 mls @ 5.67 mls/hr IV .[id number] PRN; Protocol PRN Reason: PER PROTOCOL Stop: 10/03/24 23:54 Dextrose/Lactated Ringer's (D5-Lr) 1,000 mls @ 250 mls/hr IV .Q4H PRN PRN Reason: PER PROTOCOL Stop: 10/03/24 23:54 Lactated Ringer's (Lactated Ringers) 1,000 mls @ 250 mls/hr IV .Q4H PRN PRN Reason: PER PROTOCOL Stop: 09/04/24 23:54 Potassium Chloride 20 meq/ (Lactated Ringer's) 1,010 mls @ 250 mls/hr IV .Q4H3M PRN PRN Reason: K LEVEL 3.3 TO 5.3mM/L Stop: 10/03/24 23:54 Potassium Chloride 40 meq/ (Lactated Ringer's) 1,020 mls @ 250 mls/hr IV .Q4H5M PRN PRN Reason: K LEVEL < 3.3 mM/L Stop: 10/03/24 23:54 Potassium Chloride 40 meq/ (Dextrose/Lactated Ringer's) 1,020 mls @ 250 mls/hr IV .Q4H5M PRN PRN Reason: K LEVEL < 3.3mM/L Stop: 10/03/24 23:54 Potassium Cl/Dextrose/Lact Ringer's (Kcl 20 Meq/L In D5-Lr) 20 meq in 1,000 mls @ 250 mls/hr IV .Q4H PRN PRN Reason: K LEVEL 3.3 TO 5.3 mM/L Potassium Chloride (Kcl Ivpb) 10 meq in 100 mls @ 50 mls/hr IV PRN PRN PRN Reason: K LEVEL 3.3 to 5.3 & BG > 200 Stop: 10/03/24 23:54 Potassium Phosphate (Pot Phos 15 Mmol In Ns 250 Ml) 15 mmol in 250 mls @ 62.5 mls/hr IV PRN PRN PRN Reason: Phosphate <= 1mg/dL Stop: 10/03/24 23:54 Sodium Phosphate 15 mmol/ (Sodium Chloride) 255 mls @ 62.5 mls/hr IV .Q4H5M PRN PRN Reason: Phosphate <= 1mg/dL and K> than 5.3 Stop: 10/03/24 23:54 Ceftriaxone Sodium/Dextrose (Rocephin/D5w 1gm Iv Premix) 1 gm in 50 mls @ 100 mls/hr IV QDAY NANCY Stop: 09/11/24 00:04 Vancomycin/Sodium Chloride (Vancomycin/Ns 1 Gm Ivpb) 200 mls @ 120 mls/hr IV X1 ONE Stop: 09/04/24 01:54 Ondansetron HCl (Ondansetron Inj 2 Mg/Ml Inj 2 Ml) 4 mg IVP Q6H PRN; Protocol PRN Reason: NAUSEA OR VOMITING Stop: 10/03/24 23:54 Pantoprazole Sodium (Pantoprazole Inj 40 Mg Vial) 40 mg IVP QDAY [facility] Stop: 10/04/24 08:59 Pharmacy Consult (Vancomycin Pharmacy To Dose 1 Each Each) 1 each IV QDAY [facility] Stop: 10/04/24 08:59 Sodium Bicarbonate (Sodium Bicarb Inj 8.4% Syr 50 Ml Syringe) 50 ml IV Q4HR PRN PRN Reason: For ph <= to 7.0 Stop: 10/03/24 23:54 Thiamine HCl (Thiamine Inj 100 Mg/Ml Vial 2 Ml) 100 mg IVP QDAY NANCY Stop: 10/04/24 08:59 Discontinued Medications Sodium Chloride (Ns) 1,000 mls @ 999 mls/hr IV .Q1H1M ONE Stop: 09/03/24 22:00 Last Infusion: 09/03/24 22:11 Dose: Infused Documented By: Admin: 09/03/24 21:06 Dose: 999 mls/hr Documented By: JERRY Sodium Chloride (Ns) 1,000 mls @ 999 mls/hr IV .Q1H1M ONE Stop: 09/03/24 22:00 Last Infusion: 09/03/24 22:12 Dose: Infused Documented By: Admin: 09/03/24 21:06 Dose: 999 mls/hr Documented By: JERRY Ceftriaxone Sodium/Dextrose (Rocephin/D5w 1gm Iv Premix) 1 gm in 50 mls @ 100 mls/hr IV X1 ONE Stop: 09/03/24 22:00 Last Infusion: 09/03/24 22:20 Dose: Infused Documented By: Admin: 09/03/24 21:44 Dose: 100 mls/hr Documented By: REBECA Lidocaine HCl (Lidocaine Hcl 1% 20 Ml Vial) 10 ml INFL X1 ONE Stop: 09/03/24 21:19 Last Admin: 09/03/24 22:47 Dose: 10 ml Documented By: REBECA Comments: Administered by Dr. Mejia Morphine Sulfate (Morphine Sulf Inj 10 Mg/Ml Vial) 5 mg IVP X1 ONE Stop: 09/03/24 22:26 Last Admin: 09/03/24 22:41 Dose: 5 mg Documented By: REBECA Ondansetron HCl (Ondansetron Inj 2 Mg/Ml Inj 2 Ml) 4 mg IVP X1 ONE Stop: 09/03/24 22:26 Last Admin: 09/03/24 22:42 Dose: 4 mg Documented By: REBECA See above Consultations Consultation(s) initiated? (list below): Yes Consultation #1 (Physician, Specialty, Details): Discussed with Dr. Felton for consult. Reviewed the patient?s HPI, PMHx, lab and/or radiology results. Treatment plan was discussed. Time: 21:09 Consultation #2 (Physician, Specialty, Details): Discussed with Dr. Betancourt for consult. Reviewed the patient?s HPI, PMHx, lab and/or radiology results. Discussed treatment plan. Advised to move forward with I&D. Dr. Betancourt will evaluate patient in the morning. Time: 21:12 Diagnosis Skin/Abscess Differential Diagnosis: abscess of skin or subcutaneous tissue, cellulitis, insect bites and contact dermatitis Most likely diagnosis given after review of the tests above:: DKA, Abscess Admission Indicated Admission indicated?: indicated Admission Request Was there a request for admission?: Yes Admission Attestation Admission request attestation: Discussed case with [] from Hospitalist service regarding admission. Discussed patients ED course, exam findings, labs, and radiology results. The Hospitalist [agrees,declines] to accept the patient for admission. Disposition Plan Disposition Plan: Admit Discharge Plan Plan Patient Disposition: Admit Acute Care w/in Hospital Problem List Clinical Impression: DKA (diabetic ketoacidosis), Abscess
[2024-09-03] MEDS: cefTRIAXone/D5w 1gm IV premix 1 GM/50 ML BAG IV (21:44)
[2024-09-03] MEDS: MORPHINE SULF INJ 10 MG/ML VIAL 5 MG IVP (22:41)
[2024-09-03] MEDS: ONDANSETRON INJ 2 MG/ML INJ 2 ML 4 MG IVP (22:42)
[2024-09-03] MEDS: LIDOCAINE HCL 1% 20 ML VIAL 10 ML INFL (22:47)
[2024-09-03 23:00] VITALS: BP 122/86; PULSE 86; RESP 9; O2SAT 99
[2024-09-03 23:50] LABS: Anion Gap 16 (7-16); BUN/Creatinine Ratio 16 Ratio (12-20); Blood Urea Nitrogen 11 mg/dL (9-23); Calcium 8.6 mg/dL (8.3-10.6); Carbon Dioxide 19.7 mMol/L (20.0-31.0); Chloride 100 mMol/L (98-107); Creatinine (Component) 0.7 mg/dL (0.6-1.3); Estimated Creatinine Clearance 112.5 mL/min (>60); Glucose 291 mg/dL (74-106); Osmolality,Calculated 282 (275-295); Potassium 4.1 mMol/L (3.4-5.1); Sodium 136 mMol/L (136-145); eGFR > 60 See Note
--- NOTE | 2024-09-03 23:58 | XR_ITS ---
Examination: AP chest single view Technique one AP portable upright chest single view Date and time: September 04, 2024, 0047 hours INDICATIONS: Severe pain redness and swelling involving the left lower extremity beginning 5 days ago, clinical diagnosis infection FINDINGS: Normal heart size Lungs are clear. The osseous structures are intact IMPRESSION: No active disease
[2024-09-04] VITALS (21 sets, daily range): BP systolic 99–139; BP diastolic 61–89; PULSE 69–108; RESP 3–28; TEMP 36.8–37.6; O2SAT 98–100; BMI 20.4
--- NOTE | 2024-09-04 | XR_ITS ---
Examination: MRI left lower leg, without contrast Date and time of exam: September 04, 2024 1816 hours INDICATIONS: Severe pain redness and swelling involving the lower leg being 6 days ago while he Technique: Multiple axial sagittal and coronal images of the left lower leg have been obtained with the Siemens high-resolution 1.5 Marisel MRI scanner. Images obtained include T2-weighted fat-suppressed sagittal sections, TR 3500, TE 46, T2 weighted coronal fat suppressed images, TR 3050, TE 84, T2-weighted transverse fat suppressed images, TR 3260, TE 63, proton density transverse images, TR 4720 TE 46, and T1 weighted coronal images, TR 560, TE 13. Findings: Soft tissue fluid and air collection anterior to the mid tibial shaft, axial image 23, sagittal image 13, measuring 5 cm cephalocaudad dimension, mediolateral dimension 4.0 cm, AP dimension 0.8 cm consistent with abscess The cortex of the adjacent tibia appears intact with no reactive marrow edema No endosteal scalloping Fibula is intact IMPRESSION: Soft tissue abscess anterior to the mid tibial shaft, 5.0 x 4.0 x 0.8 cm Negative for osteomyelitis
--- NOTE | 2024-09-04 00:17 | PD.RESHP ---
Documentation for date of: 09/04/24 HPI History of Present Illness Chief complaint: DKA History of present illness: Patient is 39 years old male with past medical history of insulin-dependent diabetes mellitus, previous hospital admissions for DKA, EtOH use, pancreatitis, hypertension presented to the ED complaining of left lower extremity pain and swelling. He reports his symptoms began approximately 1 week ago, he cannot recall any inciting event like trauma or injury. It was growing rapidly over the last several days and became severely painful. She denies any drainage from the wound. He denies any chest pain, shortness of breath, abdominal pain, nausea, vomiting. He reports he has on and off diarrhea for several years. He denies any fever or chills. His oral intake was fine. He continues to drink several beers a day, denies smoking tobacco or using illicit drugs. He was previously prescribed losartan for hypertension but does not take it. He reports he is using his insulin at home appropriately and measuring his glucose level every day. On admission blood pressure 109/76, pulse 106, respirations 16, temperature 99.7 ?F, oxygen saturation 93% on room air. Labs showed hemoglobin 12.5, anion gap 18, glucose 242, hemoglobin A1c 10.4%, lactic acid 1.3, CRP 6.2, BHB 5.2. pH 7.37, PCO2 37, PO2 31. Venous duplex did not show DVT. X-ray of left lower leg showed soft tissue swelling. Patient underwent I&D in the emergency room, was given 2 L of NS and was admitted to ICU for further management of DKA. PMH: insulin-dependent diabetes mellitus, previous hospital admissions for DKA, EtOH use, pancreatitis, hypertension PSH: abscess I&D x2. SH: drinks couple of beers daily, denies tobacco or illicit drugs use. FH: none. Allergies: NKA. Medications: Losartan, insulin glargine, insulin lispro. Review of Systems Review of Systems Systems Reviewed: All systems reviewed, normal except as documented Exam Vital Signs Temp Pulse Resp BP Pulse Ox O2 Del Method 98.2 F 80 20 118/86 H 100 Room Air 09/04/24 00:15 09/04/24 00:15 09/04/24 00:15 09/04/24 00:15 09/04/24 00:15 09/04/24 00:15 Narrative Exam Gen: Well-developed and well-nourished male. HEENT: NCAT, PERRLA, EOMI, MMM, anicteric conjunctivae. CVS: normal S1 and S2. RRR. No M/R/G. Resp: CTA B/L. No rhonchi, rales, crackles or wheezing. Abd: soft, non-tender, non-distended. BS+ in all 4 quadrants. MSK: Good ROM in BUE & BLE. No edema or rash. s/p I&D LLE, covered with bandage. Neuro: CN II-XII grossly intact. Strength 5/5 in BUE & BLE. Alert and oriented x3. Psych: appropriate mood and affect. Results: Labs 09/03/24 16:11 09/03/24 23:29 Labs: Short CBC 09/03/24 Range/Units 16:11 WBC 6.7 (3.8-10.6) Thou/mm3 Hgb 12.5 L (13.5-16.0) g/dL Hct 36.4 L (41.0-53.0) % Plt Count 264 (140-440) Thou/mm3 BMP 09/03/24 09/03/24 16:11 23:29 Sodium 135 L 136 Potassium 3.9 4.1 Chloride 96 L 100 Carbon Dioxide 21.4 19.7 L BUN 11 11 Creatinine 0.8 0.7 Glucose 242 H 291 H Calcium 9.4 8.6 Liver Function 09/03/24 Range/Units 16:11 Total Bilirubin 0.6 (0.3-1.2) mg/dL AST 18 (0-34) U/L ALT 29 (10-49) U/L Alkaline Phosphatase 108 (46-116) U/L Albumin 4.2 (3.5-5.0) gm/dL ABG Interpretation ABG results: 09/03/24 16:11 VBG pH 7.37 VBG pCO2 37 VBG pO2 31 VBG Base Excess -3 Quality Measures Quality Measures VTE prophylaxis Medications Home Medications and Allergies Allergies Allergy/AdvReac Type Severity Reaction Status Date / Time No Known Allergies Allergy Verified 09/03/24 14:39 Visit Medications Dextrose (Dextrose 50%-Water Inj 50 Ml Syringe) 25 ml IV [id number] PRN PRN Reason: Blood Sugar - Low Heparin Sodium (Porcine) (Heparin Sod Inj 5000 Unit/Ml Vial) 5,000 unit SC Q12HR NANCY Stop: 09/18/24 08:59 Potassium Chloride (Kcl Ivpb) 10 meq in 100 mls @ 100 mls/hr IV .Q1H PRN PRN Reason: IF POTASSIUM LESS THAN 3.3 Stop: 10/03/24 23:54 Magnesium Sulfate (Magnesium Sulfate Ivpb) 2 gm in 50 mls @ 25 mls/hr IV .Q2H PRN PRN Reason: PER DKA PROTOCOL Stop: 10/03/24 23:54 Insulin Human Regular 100 unit (/ IV Miscellaneous Supplies) 100 mls @ 5.67 mls/hr IV .[id number] PRN; Protocol PRN Reason: PER PROTOCOL Stop: 10/03/24 23:54 Dextrose/Lactated Ringer's (D5-Lr) 1,000 mls @ 250 mls/hr IV .Q4H PRN PRN Reason: PER PROTOCOL Stop: 10/03/24 23:54 Lactated Ringer's (Lactated Ringers) 1,000 mls @ 250 mls/hr IV .Q4H PRN PRN Reason: PER PROTOCOL Stop: 09/04/24 23:54 Potassium Chloride 20 meq/ (Lactated Ringer's) 1,010 mls @ 250 mls/hr IV .Q4H3M PRN PRN Reason: K LEVEL 3.3 TO 5.3mM/L Stop: 10/03/24 23:54 Potassium Chloride 40 meq/ (Lactated Ringer's) 1,020 mls @ 250 mls/hr IV .Q4H5M PRN PRN Reason: K LEVEL < 3.3 mM/L Stop: 10/03/24 23:54 Potassium Chloride 40 meq/ (Dextrose/Lactated Ringer's) 1,020 mls @ 250 mls/hr IV .Q4H5M PRN PRN Reason: K LEVEL < 3.3mM/L Stop: 10/03/24 23:54 Potassium Cl/Dextrose/Lact Ringer's (Kcl 20 Meq/L In D5-Lr) 20 meq in 1,000 mls @ 250 mls/hr IV .Q4H PRN PRN Reason: K LEVEL 3.3 TO 5.3 mM/L Potassium Chloride (Kcl Ivpb) 10 meq in 100 mls @ 50 mls/hr IV PRN PRN PRN Reason: K LEVEL 3.3 to 5.3 & BG > 200 Stop: 10/03/24 23:54 Potassium Phosphate (Pot Phos 15 Mmol In Ns 250 Ml) 15 mmol in 250 mls @ 62.5 mls/hr IV PRN PRN PRN Reason: Phosphate <= 1mg/dL Stop: 10/03/24 23:54 Sodium Phosphate 15 mmol/ (Sodium Chloride) 255 mls @ 62.5 mls/hr IV .Q4H5M PRN PRN Reason: Phosphate <= 1mg/dL and K> than 5.3 Stop: 10/03/24 23:54 Ceftriaxone Sodium/Dextrose (Rocephin/D5w 1gm Iv Premix) 1 gm in 50 mls @ 100 mls/hr IV QDAY NANCY Stop: 09/11/24 00:04 Vancomycin/Sodium Chloride (Vancomycin/Ns 1 Gm Ivpb) 200 mls @ 120 mls/hr IV X1 ONE Stop: 09/04/24 01:54 Ondansetron HCl (Ondansetron Inj 2 Mg/Ml Inj 2 Ml) 4 mg IVP Q6H PRN; Protocol PRN Reason: NAUSEA OR VOMITING Stop: 10/03/24 23:54 Pharmacy Consult (Vancomycin Pharmacy To Dose 1 Each Each) 1 each IV QDAY NANCY Stop: 10/04/24 08:59 Sodium Bicarbonate (Sodium Bicarb Inj 8.4% Syr 50 Ml Syringe) 50 ml IV Q4HR PRN PRN Reason: For ph <= to 7.0 Stop: 10/03/24 23:54 Discontinued Medications Sodium Chloride (Ns) 1,000 mls @ 999 mls/hr IV .Q1H1M ONE Stop: 09/03/24 22:00 Last Infusion: 09/03/24 22:11 Dose: Infused Sodium Chloride (Ns) 1,000 mls @ 999 mls/hr IV .Q1H1M ONE Stop: 09/03/24 22:00 Last Infusion: 09/03/24 22:12 Dose: Infused Ceftriaxone Sodium/Dextrose (Rocephin/D5w 1gm Iv Premix) 1 gm in 50 mls @ 100 mls/hr IV X1 ONE Stop: 09/03/24 22:00 Last Infusion: 09/03/24 22:20 Dose: Infused Lidocaine HCl (Lidocaine Hcl 1% 20 Ml Vial) 10 ml INFL X1 ONE Stop: 09/03/24 21:19 Last Admin: 09/03/24 22:47 Dose: 10 ml Morphine Sulfate (Morphine Sulf Inj 10 Mg/Ml Vial) 5 mg IVP X1 ONE Stop: 09/03/24 22:26 Last Admin: 09/03/24 22:41 Dose: 5 mg Ondansetron HCl (Ondansetron Inj 2 Mg/Ml Inj 2 Ml) 4 mg IVP X1 ONE Stop: 09/03/24 22:26 Last Admin: 09/03/24 22:42 Dose: 4 mg Assessment & Plan Plan Patient is 39 years old male with past medical history of insulin-dependent diabetes mellitus, previous hospital admissions for DKA, EtOH use, pancreatitis, hypertension presented to the ED complaining of left lower extremity pain and swelling, underwent I&D in the emergency room, and was admitted to ICU for further management of DKA. Neuro: #Alcohol use disorder. Patient reports social use of alcohol but reported he drinks several beers daily. Plan: - will start on CIWA protocol if withdrawal develops. - thiamine 100 mg QD IV. Cardiovascular: #Hx of hypertension. Reports being prescribed losartan but does not take it. Normotensive in the ED. Plan: - consider restarting losartan prior to dc. Respiratory: No active problem. Gastrointestinal: #Chronic diarrhea. #Hx of pancreatitis. Patient has history of pancreatitis, does not follow up with GI, reports chronic diarrhea on and off. Plan: - consider further work up or pancreatic enzyme replacement therapy. Renal: #HAGMA with appropriate respiratory compensation. VBG pH 7.37, pCO2 37, O2 31. CMP bicarb 21.4. Consistent with anion gap metabolic acidosis well compensated by respiratory alkalosis. Due to DKA, see below. Endocrine: #DKA. #Insulin-dependent diabetes mellitus. Has poorly controlled IDDM with multiple hospital admissions due to DKA. Labs showed VBG pH 7.37, pCO2 37, O2 31. CMP bicarb 21.4, glucose 242, BHB 5.2. He was given 2L of NS in the ED. Plan: - started on DKA protocol: LR 250 cc/hr with electrolyte repletion per protocol, insulin drip 0.1 unit/kg/hr. - monitor labs per protocol. Infectious Disease: #LLE abscess s/p I&D 09/04/2024. LLE XR showed soft tissue swelling. Underwent I&D in the ED. Plan: - blood cultures taken. - started on vancomycin and ceftriaxone IV. - general surgery on board. - wound care ordered, replace packing Q24H. Hematology/Oncology: #Chronic normocytic anemia. Consistent with prior readings, Hgb 12.5. Plan: - monitor with daily CBC. Diet: NPO. DVT prophylaxis: Heparin. GI prophylaxis: Protonix. Code status: FULL CODE. Disposition: ICU. Plan of care discussed with attending Dr. Barker. Leonard Yanes MD, PGY 3. Disclaimer: This note was dictated by speech recognition. Minor errors in sap security consultant may be present due to voice recognition software. Attending Provider Attestation/Addendum I attest that I was physically present for the evaluation, physical examination, lab and imaging review of the patient with the residents. I discussed the case with the residents and agree with the findings and plans of care as documented above. After examination of the patient and review of the clinical data I feel that this patient needs admission to the hospital for further treatment/evaluation. Patient is a 39 years old male with past medical history of insulin-dependent diabetes mellitus, prior DKA, alcohol abuse, pancreatitis and hypertension who presented to the ED with complaint of lower extremity pain and swelling. He started having symptoms about a week ago which has been getting increasingly swollen and painful. He also had some nausea this morning. Denied any fever, chills, shortness of breath, abdominal pain, vomiting. States that he continues to drink several beers a day. In the ED, patient underwent I&D of leg abscess. He was found to have pulse of 106, temperature 99.7, saturating well on room air. Lab results show hemoglobin of 12.5, bicarbonate 19.7, anion gap 18, glucose 291, hemoglobin A1c 10.4, magnesium 1.2, CRP 6.2, beta hydroxybutyrate 5.2. VBG was obtained, showed pH of 7.37, PCO2 37. Patient has high anion gap metabolic acidosis with appropriate respiratory compensation likely secondary to DKA. We will start him on insulin gtt. and admit to ICU for close monitoring. Also started broad-spectrum antibiotics for leg abscess, general surgery is on board, we will obtain wound care consult, cultures have been taken. Started on CIWA protocol along with thiamine for alcohol abuse. Total time spent on critical care of this patient: 35 minutes. Sanaz Barker MD
[2024-09-04] MEDS: POTASSIUM CHL 10 mEq IVPB 10 MEQ/100 ML BAG 50 MEQ IV ×4 (00:39→06:40)
[2024-09-04] MEDS: VANCOMYCIN/NS 1 GM IVPB 200 ML IV (00:39)
[2024-09-04] MEDS: RINGERS LACTATED 1000 ML 1,000 ML 250 ML IV (00:40)
[2024-09-04] MEDS: INSULIN REG 100 UNITS/100 ML 100 UNIT in PRE-MIXED 1 BAG 5.67 UNIT IV (00:40)
[2024-09-04 00:52] LABS: Base Excess, Venous -4 (-3-3); O2 Saturation, Venous 99 % (96-97); PCO2, Venous 21 mmHg (36-56); PO2, Venous 138 mmHg (15-58); pH, Venous 7.52 (7.33-7.66)
[2024-09-04 01:06] LABS: Magnesium 1.2 mg/dL (1.6-2.6); Phosphorous 3.3 mg/dL (2.4-5.1)
[2024-09-04] MEDS: DEXTROSE 5%-LACTATED RINGERS 1,000 ML 250 ML IV (02:00)
[2024-09-04] MEDS: Magnesium Sulfate 2 GM Ivpb 2 GM/50 ML BAG IV (02:40)
[2024-09-04 05:33] LABS: Basophils # (Auto) 0.0 Thou/mm3 (0.0-0.2); Basophils % (Auto) 1 % (0-2.5); Eosinophils # (Auto) 0.1 Thou/mm3 (0.0-0.5); Eosinophils % (Auto) 1 % (0-10); Hematocrit 31.6 % (41.0-53.0); Hemoglobin 11.1 g/dL (13.5-16.0); Immature Granulocytes Auto 0.02 Thou/mm3 (0.00-0.00); Lymphocytes # (Auto) 1.4 Thou/mm3 (1.0-4.8); Lymphocytes % (Auto) 20 % (10-50); Mean Corpuscular HGB Conc 35.1 g/dl (31.0-37.0); Mean Corpuscular Hemoglobin 30.2 pg (25.0-35.0); Mean Corpuscular Volume 86 fL (80-100); Monocytes # (Auto) 1.3 Thou/mm3 (0.0-0.8); Monocytes % (Auto) 19 % (0-12); Neutrophils # (Auto) 4.0 Thou/mm3 (1.8-7.7); Neutrophils % (Auto) 59 % (37-80); Nucleated Red Blood Cell # 0.00 Thou/mm3 (0.00-0.00); Nucleated Red Blood Cell % 0 /100 WBC (0); Platelet Count 208 Thou/mm3 (140-440); RDW Standard Deviation 41.2 fL (35.1-43.9); Red Blood Count 3.68 Miln/mm3 (4.50-5.90); White Blood Count 6.7 Thou/mm3 (3.8-10.6)
[2024-09-04 05:45] LABS: Base Excess 2 (-3-3); HCO3 27 mEq/L (20-26); Inspired Oxygen, FIO2 21 %; O2 Saturation 97 % (91-98); PCO2 41 mmHg (32.0-48.0); PO2 94 mmHg (83-108); pH, Arterial 7.42 (7.35-7.45)
[2024-09-04 05:46] LABS: Allen Test Performed/OK; Puncture Site Left Radial
[2024-09-04] MEDS: KCL 20 mEq/L in D5-LR 20 MEQ/1,000 ML BAG 250 MEQ IV (07:19)
[2024-09-04 07:41] LABS: Base Excess, Venous 2 (-3-3); O2 Saturation, Venous 98 % (96-97); PCO2, Venous 39 mmHg (36-56); PO2, Venous 84 mmHg (15-58); pH, Venous 7.44 (7.33-7.66)
--- NOTE | 2024-09-04 08:02 | PD.SURCONS ---
HPI Consult details Consult date: 09/04/24 Reason for consultation narrative: Cellulitis and abscess of left leg History of present illness: 39-year-old male with history of poorly controlled diabetes has been admitted on multiple occasions for DKA. He has noted cellulitis and abscess of left leg at and has been getting progressively worse. He denies history of trauma, insect or spider bites. He underwent incision and drainage by emergency department physician and was started on IV antibiotics and admitted for further management. Review of Systems Constitutional Constitutional: Denies chills and Denies fever(s) Cardiovascular Cardiovascular: Denies chest pain Respiratory Respiratory: Denies cough Gastrointestinal Gastrointestinal: Denies abdominal pain, Denies nausea and Denies vomiting Hematologic/Lymphatic Hematologic/Lymphatic: Denies easy bleeding and Denies easy bruising Past Medical History Surgical History OTHER SURGICAL HX: Multiple I&D's in the past Social History SMOKING STATUS: Never smoker SUBSTANCE USE: does not use ALCOHOL: Current Meds Home Medications and Allergies Allergies Allergy/AdvReac Type Severity Reaction Status Date / Time No Known Allergies Allergy Verified 09/03/24 14:39 Exam Vital Signs Temp Pulse Resp BP Pulse Ox O2 Del Method 99.7 F 71 14 112/70 99 Room Air 09/04/24 04:00 09/04/24 07:00 09/04/24 07:00 09/04/24 07:00 09/04/24 07:00 09/04/24 00:15 Constitutional Constitutional: no acute distress Routine Extremities Exam Comments: Significant cellulitis of left leg. Incision and drainage site with packings in place, no bleeding or drainage at this time Assessment & Plan Additional Assessment Additional comments: Cellulitis and abscess of left leg status post incision and drainage, without residual abscess at this time Plan Continue IV antibiotics. Wound care as directed
[2024-09-04 08:08] LABS: Alanine Aminotransferase 26 U/L (10-49); Albumin, Serum 3.6 gm/dL (3.5-5.0); Albumin/Globulin Ratio 1.5 (1.2-2.2); Alkaline Phosphatase 101 U/L (46-116); Anion Gap 9 (7-16); Aspartate Amino Transferase 28 U/L (0-34); BUN/Creatinine Ratio 14 Ratio (12-20); Bilirubin,Total 0.4 mg/dL (0.3-1.2); Blood Urea Nitrogen 7 mg/dL (9-23); Calcium 8.6 mg/dL (8.3-10.6); Calcium (Corrected) 8.9 mg/dL (8.5-10.1); Carbon Dioxide 26.2 mMol/L (20.0-31.0); Chloride 102 mMol/L (98-107); Creatinine (Component) 0.5 mg/dL (0.6-1.3); Estimated Creatinine Clearance 164.2 mL/min (>60); Globulin 2.4 gm/dL (2.3-3.5); Glucose 151 mg/dL (74-106); Magnesium 1.4 mg/dL (1.6-2.6); Osmolality,Calculated 274 (275-295); Phosphorous 2.6 mg/dL (2.4-5.1); Potassium 3.7 mMol/L (3.4-5.1); Sodium 137 mMol/L (136-145); Total Protein 6.0 gm/dL (5.7-8.2); eGFR > 60 See Note
[2024-09-04] MEDS: THIAMINE INJ 100 MG/ML VIAL 2 ML IVP (08:16)
[2024-09-04] MEDS: HEPARIN SOD INJ 5000 UNIT/ML VIAL SC ×2 (08:17→21:04)
[2024-09-04] MEDS: ZINC SULFATE 220 MG CAPSULE PO (08:49)
[2024-09-04] MEDS: Magnesium Sulfate 4 GM Ivpb 4 GM/50 ML BAG IV (08:49)
[2024-09-04] MEDS: INSULIN GLARGINE (Lantus) 5 UNIT/0.05 ML (PER 5 UNITS) 16 UNIT SC (08:49)
[2024-09-04] MEDS: ASCORBIC ACID 250 MG TABLET 500 MG PO ×2 (08:49→21:03)
[2024-09-04] MEDS: RINGERS LACTATED 1000 ML 1,000 ML 999 ML IV (10:14)
--- NOTE | 2024-09-04 10:15 | ESPR_ITS ---
<Statement entered by Av Gray MD - 09/05/24 07:22> Patient was seen and examined at the bedside. Patient reported that he usually does not take insulin every day as well as blood pressure medication. He was given insulin Lantus 16 units after the DKA resolved and insulin drip was discontinued. Patient was also found to have left lower extremity wound which was incised and drained in the ER. Currently awaiting MRI left lower extremity to rule out osteomyelitis to evaluate duration of antibiotics. Will follow-up with surgery recommendations. Electrolytes were repleted by ICU team. I discussed and supervised with the events intern physician who took care of this patient. I personally saw and examined the patient. I agree with most of the assessment and plan. Disclaimer: Despite multiple revisions, due to the dictation software being used, the document bellow may not be free of grammatical errors including phonetic/typographic errors. However, this does not deter from our commitment to providing health care in the patient's best interest in mind. Plan of care discussed with attending Physician Dr. Kelley Gray MD PGY-3 Documentation for date of: 09/04/24 Subjective Subjective Interval history: No overnight events. Evaluated at bedside. Downgrade from ICU this morning, admitted for DKA in the first place. VS stable. Anion gap closed. Transitioned patient to Lantus 16 units subcutaneous along with step 2 sliding scale insulin patient was started on carb consistent diet. MRI LLE neg for osteo. Exam Vital Signs Temp Pulse Resp BP Pulse Ox O2 Del Method O2 Flow Rate 97.6 F 75 18 113/84 99 Room Air 4 09/05/24 04:00 09/05/24 04:00 09/04/24 23:59 09/05/24 04:00 09/05/24 04:00 09/05/24 04:00 09/04/24 08:00 Narrative Exam Gen: Well-developed and well-nourished male. HEENT: NCAT, PERRLA, EOMI, MMM, anicteric conjunctivae. CVS: normal S1 and S2. RRR. No M/R/G. Resp: CTA B/L. No rhonchi, rales, crackles or wheezing. Abd: soft, non-tender, non-distended. BS+ in all 4 quadrants. MSK: Good ROM in BUE & BLE. No edema or rash. s/p I&D LLE, covered with bandage. Neuro: CN II-XII grossly intact. Strength 5/5 in BUE & BLE. Alert and oriented x3. Psych: appropriate mood and affect. Objective Labs 09/05/24 04:31 09/05/24 04:31 Labs: Laboratory Results - last 24 hr 09/04/24 09/05/24 07:10 04:31 WBC 4.5 RBC 3.71 L Hgb 11.2 L Hct 32.7 L MCV 88 MCH 30.2 MCHC 34.3 RDW Std Deviation 40.7 Plt Count 247 D Neut % (Auto) 50 Lymph % (Auto) 33 [place]ata % (Auto) 14 H Eos % (Auto) 1 Baso % (Auto) 1 Neut # (Auto) 2.3 Lymph # (Auto) 1.5 [place]ata # (Auto) 0.6 Eos # (Auto) 0.0 Baso # (Auto) 0.0 Immature Gran # (Auto) 0.03 H Absolute Nucleated RBC 0.00 Immature Gran % 1 H Nucleated RBC % 0 VBG pH 7.44 VBG pCO2 39 D VBG pO2 84 H D VBG O2 Sat (Trey) 98 H VBG Base Excess 2 Sodium 137 135 L Potassium 3.7 3.7 Chloride 102 96 L Carbon Dioxide 26.2 30.3 Anion Gap 9 9 BUN 7 L 6 L Creatinine 0.5 L 0.6 Estim Creat Clear Calc 164.2 136.8 eGFR > 60 > 60 BUN/Creatinine Ratio 14 10 L Glucose 151 H D 312 H D Calculated Osmolality 274 L 279 Calcium 8.6 8.8 Corrected Calcium 8.9 9.2 Phosphorus 2.6 3.0 Magnesium 1.4 L 1.4 L Total Bilirubin 0.4 0.4 AST 28 21 ALT 26 21 Alkaline Phosphatase 101 104 Total Protein 6.0 6.1 Albumin 3.6 D 3.5 Globulin 2.4 2.6 Albumin/Globulin Ratio 1.5 1.3 ABG Interpretation ABG results: 09/03/24 09/04/24 09/04/24 16:11 00:33 05:31 ABG pH 7.42 ABG pCO2 41 ABG pO2 94 ABG HCO3 27 H ABG O2 Saturation 97 ABG Base Excess 2 VBG pH 7.37 7.52 VBG pCO2 37 21 L D VBG pO2 31 138 H D VBG Base Excess -3 -4 L 09/04/24 07:10 ABG pH ABG pCO2 ABG pO2 ABG HCO3 ABG O2 Saturation ABG Base Excess VBG pH 7.44 VBG pCO2 39 D VBG pO2 84 H D VBG Base Excess 2 Quality Measures Quality Measures VTE prophylaxis Assessment & Plan Assessment Current Active Medications: Generic Name Dose Route Start Last Admin Trade Name Freq PRN Reason Stop Dose Admin Ascorbic Acid 500 mg 09/04/24 09:00 09/04/24 21:03 Ascorbic Acid 250 Mg Tablet PO 10/04/24 08:59 500 mg BID NANCY Administration Dextrose 25 ml 09/04/24 08:27 Dextrose 50%-Water Inj 50 Ml Syringe IV 10/04/24 08:26 Q15MIN PRN BG 50-70 responsive npo pt Dextrose 50 ml 09/04/24 08:27 Dextrose 50%-Water Inj 50 Ml Syringe IV 10/04/24 08:26 Q15MIN PRN BG <50 OR BG <70 & pt unresponsive Glucagon 1 mg 09/04/24 08:27 Glucagon Inj 1 Mg Vial IM Q15MIN PRN BG <70, and no IV access Heparin Sodium (Porcine) 5,000 unit 09/04/24 09:00 09/04/24 21:04 Heparin Sod Inj 5000 Unit/Ml Vial SC 09/18/24 08:59 5,000 unit Q12HR NANCY Administration Doxycycline Hyclate 100 mg/ 100 mls @ 100 mls/hr 09/04/24 09:15 09/04/24 21:04 Sodium Chloride IV 09/11/24 09:14 100 mls/hr BID NANCY Administration Piperacillin/Tazobactam/Dextrose 3.375 gm in 50 mls @ 12.5 mls/hr 09/04/24 14:00 09/05/24 05:30 Zosyn IV 09/11/24 13:59 12.5 mls/hr Q8HR NANCY Administration Insulin Glargine 16 unit 09/04/24 08:35 09/04/24 08:49 Insulin Glargine (Lantus) 5 Unit/0.05 Ml (Per 5 Units) SC 10/04/24 08:34 16 unit QDAY NANCY Administration Insulin Human Lispro 0 unit 09/04/24 11:30 09/04/24 21:03 Insulin Lispro (Admelog) 1 Unit/0.01 Ml Unit SC 10/04/24 11:29 3 unit ACHS NANCY Administration Protocol Ondansetron HCl 4 mg 09/03/24 23:55 Ondansetron Inj 2 Mg/Ml Inj 2 Ml IVP 10/03/24 23:54 Q6H PRN NAUSEA OR VOMITING Protocol Pantoprazole Sodium 40 mg 09/04/24 09:00 09/04/24 08:16 Pantoprazole Inj 40 Mg Vial IVP 10/04/24 08:59 40 mg QDAY NANCY Administration Thiamine HCl 100 mg 09/04/24 09:00 09/04/24 08:16 Thiamine Inj 100 Mg/Ml Vial 2 Ml IVP 10/04/24 08:59 100 mg QDAY NANCY Administration Zinc Sulfate 220 mg 09/04/24 09:00 09/04/24 08:49 Zinc Sulfate 220 Mg Capsule PO 10/04/24 08:59 220 mg QDAY NANCY Administration Plan Patient is 39 years old male with past medical history of insulin-dependent diabetes mellitus, previous hospital admissions for DKA, EtOH use, pancreatitis, hypertension presented to the ED complaining of left lower extremity pain and swelling, underwent I&D in the emergency room, and was admitted to ICU for further management of DKA. Downgrade to [facility] today. # Moderate diabetic ketoacidosis, resolved # Poorly controlled insulin-dependent diabetes mellitus, hemoglobin A1c 10.4 Has poorly controlled IDDM with multiple hospital admissions due to DKA. Also has underlying infectious etiology and lower leg extremity cellulitis and abscess Labs showed VBG pH 7.37, pCO2 37, O2 31. CMP bicarb 21.4, glucose 242, BHB 5.2. He was given 2L of NS in the ED. Plan: - Transition to Lantus 16 units subcutaneous every - Step 2 sliding scale - Discontinued insulin drip - 1 L LR bolus followed by 1 L LR maintenance fluid - Follow CMP in a.m. - Referral to registered dietitian, diabetic education - Pending EKG # Left lower extremity cellulitis and abscess status post I&D 09/03/2024 # Rule out osteomyelitis LLE XR showed soft tissue swelling. Underwent I&D in the ED. ESR and CRP elevated. WBC within normal limits. Patient symptoms less than 2 weeks, no precipitation event/injury per history. Evaluated by general surgery today, recommends continuing IV antibiotics Patient received ceftriaxone and vancomycin (09/03-09/04) Plan: - Bcx no growth @ 24H - Started on IV Zosyn and doxycycline (09/04- - Obtain left lower extremity MRI without contrast : reads negative for osteo - Referral to wound care - Continue daily wound care. - Vitamin C and zinc per general surgery #Alcohol dependence Patient reports social use of alcohol but reported he drinks several beers daily. No symptoms of alcohol withdrawal. Plan: - Defer from CIWA protocol for now, will start on CIWA protocol if CIWA greater than 1012 - Thiamine 100 mg QD IV. - Referral to executive secretary social welfare - Patient advised to quit alcohol #Hypertension, by history Reports being prescribed losartan but does not take it. Normotensive in the ED. Plan: - Blood pressure soft, continue to monitor. #Chronic diarrhea. #Hx of pancreatitis. Patient has history of pancreatitis, does not follow up with GI, reports chronic diarrhea on and off. Plan: - Currently has no diarrhea, consider outpatient workup, monitor for diarrhea. #Acute kidney injury, resolved Baseline creatinine 0.5, creatinine increased by 0.3 on presentation did have underlying DKA received adequate fluid resuscitation. - Follow renal function in a.m. - Renally dose medications - Avoid nephrotoxic agents #Hypomagnesemia - Correct and replace electrolytes # High anion gap metabolic acidosis, in setting of DKA, resolved - downgrade to [facility] #Chronic normocytic anemia. Consistent with prior readings, Hgb 12.5. Plan: - monitor with daily CBC. Diet: Carbohydrate consistent low DVT prophylaxis: Heparin. GI prophylaxis: IV Protonix. Code status: FULL CODE. Disposition: Downgraded to [facility] Case discussed with my senior resident Dr. Gray Case discussed with my attending Dr. Kelley Matos DO PGY 1 Attending Provider Attestation/Addendum Kandice Patel DO, attest that I was physically present for the aguilar portions of the service and evaluated the patient with the resident and I reviewed and discussed the case with the resident and agree with the resident's findings and plans of care as documented above Patient seen and evaluated this afternoon. Patient has been downgraded from ICU after which she was admitted for DKA. Patient was found to have worsening lower extremity pain and swelling for the past week. Patient was found to have an abscess that was drained by ER physician. Surgeon was also consulted due to cellulitis abscess of left potter. Dressing has been draining serosanguineous fluid. Wound care consulted. Patient has a history of type 2 insulin-dependent diabetes and alcohol use, pancreatitis and hypertension. Patient states that he only takes his medications if he feels bad. He uses 20 to 30 units of insulin depending on how he feels. He also states that he only uses his antihypertensives if he does not feel well. Patient has not been very compliant nor has he picked up his CGM at the pharmacy. DKA has been resolved with insulin drip and patient has been transition to 60 units of Lantus nightly. Will monitor blood glucose closely. Continue with IV antibiotics. Patient is pending MRI to rule out osteomyelitis of the left potter.
[2024-09-04] MEDS: POT PHOS 15 mMol in NS 250 ML 15 MMOL/250 ML BAG 62.5 MMOL IV (10:17)
--- NOTE | 2024-09-04 10:18 | PD.RESPRO ---
Documentation for date of: 09/04/24 Subjective Subjective Interval history: Mr Bailey is a 39 years old Malagasy-speaking male with past medical history of insulin-dependent diabetes mellitus, previous hospital admissions for DKA, EtOH use, pancreatitis, hypertension presented to the ED complaining of left lower extremity pain and swelling. He reports his symptoms began approximately 1 week ago, he cannot recall any inciting event like trauma or injury. It was growing rapidly over the last several days and became severely painful. She denies any drainage from the wound. He denies any chest pain, shortness of breath, abdominal pain, nausea, vomiting. He reports he has on and off diarrhea for several years. He denies any fever or chills. His oral intake was fine. He continues to drink several beers a day, denies smoking tobacco or using illicit drugs. He was previously prescribed losartan for hypertension but does not take it. He reports he is using his insulin at home appropriately and measuring his glucose level every day. On admission blood pressure 109/76, pulse 106, respirations 16, temperature 99.7 ?F, oxygen saturation 93% on room air. Labs showed hemoglobin 12.5, anion gap 18, glucose 242, hemoglobin A1c 10.4%, lactic acid 1.3, CRP 6.2, BHB 5.2. pH 7.37, PCO2 37, PO2 31. Venous duplex did not show DVT. X-ray of left lower leg showed soft tissue swelling. Patient underwent I&D in the emergency room, was given 2 L of NS and was admitted to ICU for further management of DKA. 09/04/2024: Patient seen examined at bedside, patient is alert and oriented x 3, no symptoms of acute alcohol withdrawal, will defer from CIWA protocol for now. Patient alert and oriented x 3, reports that he has been taking his insulin at home regularly, DKA likely triggered with underlying cellulitis/abscess, ESR and CRP are elevated will obtain MRI to rule out osteomyelitis, GAYLE has improved significantly, patient's anion gap closed twice bicarb is uptrending transitioned patient to Lantus 16 units subcutaneous along with step 2 sliding scale insulin patient was started on carb consistent diet. Electrolytes replaced aggressively, was given 4 g of mag, x 1 of K-Phos, fluid resuscitation continued with 1 L bolus of LR followed by 1 L maintenance. Referral to dietitian, pending diabetic education. Wound in lower extremity assessed by general surgery, general surgery recommends IV antibiotics and wound care for now. Otherwise patient is stable to be downgraded to MedSurg, hospitalist team to resume care of the patient, downgraded to hospitalist team A. Exam Vital Signs Temp Pulse Resp BP Pulse Ox O2 Del Method 99.7 F 71 14 112/70 99 Room Air 09/04/24 04:00 09/04/24 07:00 09/04/24 07:00 09/04/24 07:00 09/04/24 07:00 09/04/24 00:15 Narrative Exam Gen: Well-developed and well-nourished male. HEENT: NCAT, PERRLA, EOMI, MMM, anicteric conjunctivae. CVS: normal S1 and S2. RRR. No M/R/G. Resp: CTA B/L. No rhonchi, rales, crackles or wheezing. Abd: soft, non-tender, non-distended. BS+ in all 4 quadrants. MSK: Good ROM in BUE & BLE. No edema or rash. s/p I&D LLE, covered with bandage. Neuro: CN II-XII grossly intact. Strength 5/5 in BUE & BLE. Alert and oriented x3. Psych: appropriate mood and affect. Objective Labs 09/05/24 04:31 09/05/24 04:31 Labs: Laboratory Results - last 24 hr 09/03/24 09/03/24 09/04/24 16:11 23:29 00:33 WBC 6.7 RBC 4.22 L Hgb 12.5 L Hct 36.4 L MCV 86 MCH 29.6 MCHC 34.3 RDW Std Deviation 41.7 Plt Count 264 Neut % (Auto) 65 Lymph % (Auto) 18 [place] % (Auto) 15 H Eos % (Auto) 0 Baso % (Auto) 1 Neut # (Auto) 4.4 Lymph # (Auto) 1.2 [place] # (Auto) 1.0 H Eos # (Auto) 0.0 Baso # (Auto) 0.1 Immature Gran # (Auto) 0.02 H Absolute Nucleated RBC 0.00 Immature Gran % 0 Nucleated RBC % 0 ESR 57 H PT 11.2 INR 1.0 Puncture Site ABG pH ABG pCO2 ABG pO2 ABG HCO3 ABG O2 Saturation ABG Base Excess VBG pH 7.37 7.52 VBG pCO2 37 21 L D VBG pO2 31 138 H D VBG O2 Sat (Trey) 58 L 99 H D VBG Base Excess -3 -4 L FiO2 Sodium 135 L 136 Potassium 3.9 4.1 Chloride 96 L 100 Carbon Dioxide 21.4 19.7 L Anion Gap 18 H 16 BUN 11 11 Creatinine 0.8 0.7 Estim Creat Clear Calc 98.4 112.5 eGFR > 60 > 60 BUN/Creatinine Ratio 14 16 Glucose [address] Glu mg/dL 252 H Hemoglobin A1c 10.4 H Calculated Osmolality 277 282 Lactic Acid 1.3 Calcium 9.4 8.6 Corrected Calcium 9.4 Phosphorus 3.3 Cancelled Magnesium 1.2 L Cancelled Total Bilirubin 0.6 AST 18 ALT 29 Alkaline Phosphatase 108 C-Reactive Prot, Quant 6.2 H Total Protein 7.1 Albumin 4.2 Globulin 2.9 Albumin/Globulin Ratio 1.4 Beta-Hydroxybutyrate/Acetoacetate 5.2 H Procalcitonin 0.08 09/04/24 09/04/24 09/04/24 04:42 05:31 07:10 WBC 6.7 RBC 3.68 L Hgb 11.1 L Hct 31.6 L MCV 86 MCH 30.2 MCHC 35.1 RDW Std Deviation 41.2 Plt Count 208 D Neut % (Auto) 59 Lymph % (Auto) 20 [place] % (Auto) 19 H Eos % (Auto) 1 Baso % (Auto) 1 Neut # (Auto) 4.0 Lymph # (Auto) 1.4 [place] # (Auto) 1.3 H Eos # (Auto) 0.1 Baso # (Auto) 0.0 Immature Gran # (Auto) 0.02 H Absolute Nucleated RBC 0.00 Immature Gran % 0 Nucleated RBC % 0 ESR PT INR Puncture Site Left Radial ABG pH 7.42 ABG pCO2 41 ABG pO2 94 ABG HCO3 27 H ABG O2 Saturation 97 ABG Base Excess 2 VBG pH 7.44 VBG pCO2 39 D VBG pO2 84 H D VBG O2 Sat (Trey) 98 H VBG Base Excess 2 FiO2 21 Sodium 137 Potassium 3.7 Chloride 102 Carbon Dioxide 26.2 Anion Gap 9 BUN 7 L Creatinine 0.5 L Estim Creat Clear Calc 164.2 eGFR > 60 BUN/Creatinine Ratio 14 Glucose [address] Glu mg/dL Hemoglobin A1c Calculated Osmolality 274 L Lactic Acid Calcium 8.6 Corrected Calcium 8.9 Phosphorus 2.6 Magnesium 1.4 L Total Bilirubin 0.4 AST 28 ALT 26 Alkaline Phosphatase 101 C-Reactive Prot, Quant Total Protein 6.0 Albumin 3.6 D Globulin 2.4 Albumin/Globulin Ratio 1.5 Beta-Hydroxybutyrate/Acetoacetate Procalcitonin ABG Interpretation ABG results: 09/03/24 09/04/24 09/04/24 16:11 00:33 05:31 ABG pH 7.42 ABG pCO2 41 ABG pO2 94 ABG HCO3 27 H ABG O2 Saturation 97 ABG Base Excess 2 VBG pH 7.37 7.52 VBG pCO2 37 21 L D VBG pO2 31 138 H D VBG Base Excess -3 -4 L 09/04/24 07:10 ABG pH ABG pCO2 ABG pO2 ABG HCO3 ABG O2 Saturation ABG Base Excess VBG pH 7.44 VBG pCO2 39 D VBG pO2 84 H D VBG Base Excess 2 Quality Measures Quality Measures VTE prophylaxis Assessment & Plan Assessment Current Active Medications: Generic Name Dose Route Start Last Admin Trade Name Freq PRN Reason Stop Dose Admin Ascorbic Acid 500 mg 09/04/24 09:00 09/04/24 08:49 Ascorbic Acid 250 Mg Tablet PO 10/04/24 08:59 500 mg BID NANCY Administration Dextrose 25 ml 09/04/24 08:27 Dextrose 50%-Water Inj 50 Ml Syringe IV 10/04/24 08:26 Q15MIN PRN BG 50-70 responsive npo pt Dextrose 50 ml 09/04/24 08:27 Dextrose 50%-Water Inj 50 Ml Syringe IV 10/04/24 08:26 Q15MIN PRN BG <50 OR BG <70 & pt unresponsive Glucagon 1 mg 09/04/24 08:27 Glucagon Inj 1 Mg Vial IM Q15MIN PRN BG <70, and no IV access Heparin Sodium (Porcine) 5,000 unit 09/04/24 09:00 09/04/24 08:17 Heparin Sod Inj 5000 Unit/Ml Vial SC 09/18/24 08:59 5,000 unit Q12HR NANCY Administration Insulin Human Regular 100 unit 100 mls @ 5.67 mls/hr 09/03/24 23:55 09/04/24 10:00 / IV Miscellaneous Supplies IV 10/03/24 23:54 0 unit/kg/hr .[id number] PRN 0 mls/hr PER PROTOCOL Titration Protocol 0.1 UNIT/KG/HR Magnesium Sulfate 4 gm in 50 mls @ 12.5 mls/hr 09/04/24 08:32 09/04/24 08:49 Magnesium Sulfate Ivpb IV 09/04/24 12:31 12.5 mls/hr X1 ONE Administration Lactated Ringer's 1,000 mls @ 125 mls/hr 09/04/24 10:15 Lactated Ringers IV 09/04/24 18:14 .Q8H ONE Doxycycline Hyclate 100 mg/ 100 mls @ 100 mls/hr 09/04/24 09:15 Sodium Chloride IV 09/11/24 09:14 BID NANCY Potassium Phosphate 15 mmol in 250 mls @ 62.5 mls/hr 09/04/24 09:12 09/04/24 10:17 Pot Phos 15 Mmol In Ns 250 Ml IV 09/04/24 13:11 62.5 mls/hr X1 ONE Administration Piperacillin/Tazobactam/Dextrose 3.375 gm in 50 mls @ 12.5 mls/hr 09/04/24 14:00 Zosyn IV 09/11/24 13:59 Q8HR NANCY Insulin Glargine 16 unit 09/04/24 08:35 09/04/24 08:49 Insulin Glargine (Lantus) 5 Unit/0.05 Ml (Per 5 Units) SC 10/04/24 08:34 16 unit QDAY NANCY Administration Insulin Human Lispro 0 unit 09/04/24 11:30 Insulin Lispro (Admelog) 1 Unit/0.01 Ml Unit SC 10/04/24 11:29 ACHS [facility] Protocol Ondansetron HCl 4 mg 09/03/24 23:55 Ondansetron Inj 2 Mg/Ml Inj 2 Ml IVP 10/03/24 23:54 Q6H PRN NAUSEA OR VOMITING Protocol Pantoprazole Sodium 40 mg 09/04/24 09:00 09/04/24 08:16 Pantoprazole Inj 40 Mg Vial IVP 10/04/24 08:59 40 mg QDAY NANCY Administration Thiamine HCl 100 mg 09/04/24 09:00 09/04/24 08:16 Thiamine Inj 100 Mg/Ml Vial 2 Ml IVP 10/04/24 08:59 100 mg QDAY NANCY Administration Zinc Sulfate 220 mg 09/04/24 09:00 09/04/24 08:49 Zinc Sulfate 220 Mg Capsule PO 10/04/24 08:59 220 mg QDAY NANCY Administration Plan Patient is 39 years old male with past medical history of insulin-dependent diabetes mellitus, previous hospital admissions for DKA, EtOH use, pancreatitis, hypertension presented to the ED complaining of left lower extremity pain and swelling, underwent I&D in the emergency room, and was admitted to ICU for further management of DKA. Neuro: #Alcohol dependence Patient reports social use of alcohol but reported he drinks several beers daily. No symptoms of alcohol withdrawal. Plan: - Continue CIWA score every 4 hours, will start on CIWA protocol if CIWA greater than 10/12 - Thiamine 100 mg QD IV. - Referral to social science manager - Patient advised to quit alcohol Cardiovascular: #Hypertension, by history Reports being prescribed losartan but does not take it. Normotensive in the ED. Plan: - Blood pressure soft, continue to monitor. Respiratory: No active problem. Gastrointestinal: #Chronic diarrhea. #Hx of pancreatitis. Patient has history of pancreatitis, does not follow up with GI, reports chronic diarrhea on and off. Plan: - Currently has no diarrhea, consider outpatient workup, monitor for diarrhea. Renal: #Acute kidney injury, resolved Baseline creatinine 0.5, creatinine increased by 0.3 on presentation did have underlying DKA received adequate fluid resuscitation. - Follow renal function in a.m. - Renally dose medications - Avoid nephrotoxic agents #Hypomagnesemia - Correct and replace electrolytes # High anion gap metabolic acidosis, in setting of DKA, resolved Endocrine: # Moderate diabetic ketoacidosis, resolved # Poorly controlled insulin-dependent diabetes mellitus, hemoglobin A1c 10.4 Has poorly controlled IDDM with multiple hospital admissions due to DKA. Also has underlying infectious etiology and lower leg extremity cellulitis and abscess Labs showed VBG pH 7.37, pCO2 37, O2 31. CMP bicarb 21.4, glucose 242, BHB 5.2. He was given 2L of NS in the ED. Plan: - Transition to Lantus 16 units subcutaneous every - Step 2 sliding scale - Discontinued insulin drip - 1 L LR bolus followed by 1 L LR maintenance fluid - Follow CMP in a.m. - Referral to registered dietitian, diabetic education - Pending EKG Infectious Disease: # Left lower extremity cellulitis and abscess status post I&D 09/03/2024 # Rule out osteomyelitis LLE XR showed soft tissue swelling. Underwent I&D in the ED. ESR and CRP elevated. WBC within normal limits. Patient symptoms less than 2 weeks, no precipitation event/injury per history. Evaluated by general surgery today, recommends continuing IV antibiotics Patient received ceftriaxone and vancomycin (09/03-09/04) Plan: - Follow-up blood cultures - Started on IV Zosyn and doxycycline (09/04- - Obtain left lower extremity MRI without contrast - Referral to wound care - Continue daily wound care. - Vitamin C and zinc per general surgery Hematology/Oncology: #Chronic normocytic anemia. Consistent with prior readings, Hgb 12.5. Plan: - monitor with daily CBC. Diet: Carbohydrate consistent low DVT prophylaxis: Heparin. GI prophylaxis: IV Protonix. Code status: FULL CODE. Disposition: Downgraded to MedSur, hospitalist team to resume care. Case discussed with Attending Breaster Dr. Idris Head. Shea Lovelace MD Internal Medicine PGY-2 Disclaimer: This note was dictated by speech recognition. Minor errors in manager personnel selection may be present due to voice recognition software. Attending Provider Attestation/Addendum Patient seen and examined with above resident, Shea Lovelace MD. I agree with the findings, assessment, and plan of care as documented except for any differences below. Patient admitted with DKA. Successful transition this morning. Patient with significant the elevated hemoglobin A1c of 10.4, will need further titration of regimen prior to discharge in coming days. Course likely precipitated by lower extremity cellulitis. Remains on Zosyn and doxycycline and will narrow antibiotic regimen based on findings including plan for MRI imaging to exclude presence of acute osteomyelitis which may be missed by x-ray/CT. Wound care will likely be necessary in the long run, fortunately abscess was drained adequately by ED and I suspect that ESR and CRP is likely more reflection of this than true deep-seated infection including of the bone. Patient also with significant history of alcohol abuse and remains on CIWA protocol as well as thiamine supplementation. Patient is appropriate for transition to medicine oreilly. Total critical care time: I personally spent 40 minutes for review of physiologic parameters, directing plan of care throughout today, coordination of care with subspecialist, and counseling patient at bedside. This is exclusive of time spent teaching and staff or performing any separate billable procedures. Patient remains at significant risk for further morbidity and mortality warranting close monitoring and care only available in the ICU. Critical care services required for diabetic ketoacidosis without coma, lower extremity cellulitis with abscess formation, alcohol use disorder.
[2024-09-04] MEDS: DOXYCYCLINE INJ 100 MG in SODIUM CHLORIDE 0.9% (POP) 100 ML IV ×2 (10:20→21:04)
[2024-09-04] MEDS: PIPER/TAZO INJ 4.5 GM in SODIUM CHLORIDE 0.9% (POP) 100 ML IV (11:09)
[2024-09-04] MEDS: RINGERS LACTATED 1000 ML 1,000 ML 125 ML IV (11:11)
[2024-09-04] MEDS: INSULIN LISPRO (AdmeLOG) 1 UNIT/0.01 ML UNIT SC ×3 (12:00→21:03)
--- NOTE | 2024-09-04 12:32 | PC.SS ---
THREADER OPERATOR conducted bedside contact with the patient conduct initial assessment and to discuss discharge planning.? THREADER OPERATOR utilized translation services.? Patient is Indian speaking.? Patient confirmed demographic information.? Patient resides at home with spouse, Maurice Davis; .? Patient does not utilize DME to assist with ambulation.? Patient does not utilize home oxygen. Patient describes ability to complete ADL?s independently.? Patient identified spouse, Maurice Gill Susan; as surrogate medical decision maker.? Patient utilizes [facility] for PCP services.? Patient does not possess any specialty providers.? Patient utilizes [facility] for medication services.? Patient is diabetic, insulin dependent.? Plan is for the patient to return home at the time of discharge.? Family will provide transportation on behalf of the patient. ?No further discharge needs identified by the patient.? No further intervention required at this time, social media community manager will be available to address any further concerns.? Next of Kin: Maurice Davis D/C Plan: Home
--- NOTE | 2024-09-04 13:41 | EKG_ITS ---
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
[2024-09-04] MEDS: PIPER/TAZO 3.375 GM PREMIX 3.375 GM/50 ML BAG IV ×2 (14:06→22:16)
[2024-09-05 04:00] VITALS: BP 113/84; PULSE 75; TEMP 36.4; O2SAT 99
[2024-09-05 05:19] LABS: Basophils # (Auto) 0.0 Thou/mm3 (0.0-0.2); Basophils % (Auto) 1 % (0-2.5); Eosinophils # (Auto) 0.0 Thou/mm3 (0.0-0.5); Eosinophils % (Auto) 1 % (0-10); Hematocrit 32.7 % (41.0-53.0); Hemoglobin 11.2 g/dL (13.5-16.0); Immature Granulocytes Auto 0.03 Thou/mm3 (0.00-0.00); Lymphocytes # (Auto) 1.5 Thou/mm3 (1.0-4.8); Lymphocytes % (Auto) 33 % (10-50); Mean Corpuscular HGB Conc 34.3 g/dl (31.0-37.0); Mean Corpuscular Hemoglobin 30.2 pg (25.0-35.0); Mean Corpuscular Volume 88 fL (80-100); Monocytes # (Auto) 0.6 Thou/mm3 (0.0-0.8); Monocytes % (Auto) 14 % (0-12); Neutrophils # (Auto) 2.3 Thou/mm3 (1.8-7.7); Neutrophils % (Auto) 50 % (37-80); Nucleated Red Blood Cell # 0.00 Thou/mm3 (0.00-0.00); Nucleated Red Blood Cell % 0 /100 WBC (0); Platelet Count 247 Thou/mm3 (140-440); RDW Standard Deviation 40.7 fL (35.1-43.9); Red Blood Count 3.71 Miln/mm3 (4.50-5.90); White Blood Count 4.5 Thou/mm3 (3.8-10.6)
[2024-09-05] MEDS: PIPER/TAZO 3.375 GM PREMIX 3.375 GM/50 ML BAG IV (05:30)
[2024-09-05 05:43] LABS: Alanine Aminotransferase 21 U/L (10-49); Albumin, Serum 3.5 gm/dL (3.5-5.0); Albumin/Globulin Ratio 1.3 (1.2-2.2); Alkaline Phosphatase 104 U/L (46-116); Anion Gap 9 (7-16); Aspartate Amino Transferase 21 U/L (0-34); BUN/Creatinine Ratio 10 Ratio (12-20); Bilirubin,Total 0.4 mg/dL (0.3-1.2); Blood Urea Nitrogen 6 mg/dL (9-23); Calcium 8.8 mg/dL (8.3-10.6); Calcium (Corrected) 9.2 mg/dL (8.5-10.1); Carbon Dioxide 30.3 mMol/L (20.0-31.0); Chloride 96 mMol/L (98-107); Creatinine (Component) 0.6 mg/dL (0.6-1.3); Estimated Creatinine Clearance 136.8 mL/min (>60); Globulin 2.6 gm/dL (2.3-3.5); Glucose 312 mg/dL (74-106); Magnesium 1.4 mg/dL (1.6-2.6); Osmolality,Calculated 279 (275-295); Phosphorous 3.0 mg/dL (2.4-5.1); Potassium 3.7 mMol/L (3.4-5.1); Sodium 135 mMol/L (136-145); Total Protein 6.1 gm/dL (5.7-8.2); eGFR > 60 See Note
[2024-09-05 06:00] VITALS: BMI 20.4
[2024-09-05] MEDS: Magnesium Sulfate 4 GM Ivpb 4 GM/50 ML BAG IV (08:12)
[2024-09-05] MEDS: DOXYCYCLINE INJ 100 MG in SODIUM CHLORIDE 0.9% (POP) 100 ML IV (08:12)
[2024-09-05] MEDS: ZINC SULFATE 220 MG CAPSULE PO (08:13)
[2024-09-05] MEDS: HEPARIN SOD INJ 5000 UNIT/ML VIAL SC (08:13)
[2024-09-05] MEDS: ASCORBIC ACID 250 MG TABLET 500 MG PO (08:13)
[2024-09-05] MEDS: THIAMINE INJ 100 MG/ML VIAL 2 ML IVP (08:13)
[2024-09-05] MEDS: INSULIN LISPRO (AdmeLOG) 1 UNIT/0.01 ML UNIT 2 UNIT SC ×2 (08:15→11:45)
[2024-09-05] MEDS: INSULIN LISPRO (AdmeLOG) 1 UNIT/0.01 ML UNIT SC ×2 (08:15→11:46)
[2024-09-05] MEDS: INSULIN GLARGINE (Lantus) 5 UNIT/0.05 ML (PER 5 UNITS) 20 UNIT SC (08:16)
--- NOTE | 2024-09-05 08:55 | PD.RESPRO ---
Documentation for date of: 09/05/24 Subjective Subjective Interval history: No overnight events. Evaluated at bedside. AM lab this morning shows BG of 300, changing Lantus from 16U to 20U, Lispro 2U TID, and continue ISS. Will reevaluate dose adjustment pending padma's morning lab. LLE I&D site intact, clean and dry with serosanguious fluid draining. Packed with gauze packing strip. Exam Vital Signs Temp Pulse Resp BP Pulse Ox O2 Del Method O2 Flow Rate 97.6 F 75 18 113/84 99 Room Air 4 09/05/24 04:00 09/05/24 04:00 09/04/24 23:59 09/05/24 04:00 09/05/24 04:00 09/05/24 04:00 09/04/24 08:00 Narrative Exam Gen: Well-developed and well-nourished male. Ambulatory HEENT: NCAT, PERRLA, EOMI, MMM, anicteric conjunctivae. CVS: normal S1 and S2. RRR. No M/R/G. Resp: CTA B/L. No rhonchi, rales, crackles or wheezing. Abd: soft, non-tender, non-distended. BS+ in all 4 quadrants. MSK: Good ROM in BUE & BLE. No edema or rash. s/p I&D LLE, covered with bandage. Neuro: CN II-XII grossly intact. Strength 5/5 in BUE & BLE. Alert and oriented x3. Psych: appropriate mood and affect. Objective Labs 09/05/24 04:31 09/05/24 04:31 Labs: Laboratory Results - last 24 hr 09/05/24 04:31 WBC 4.5 RBC 3.71 L Hgb 11.2 L Hct 32.7 L MCV 88 MCH 30.2 MCHC 34.3 RDW Std Deviation 40.7 Plt Count 247 D Neut % (Auto) 50 Lymph % (Auto) 33 [place] % (Auto) 14 H Eos % (Auto) 1 Baso % (Auto) 1 Neut # (Auto) 2.3 Lymph # (Auto) 1.5 [place] # (Auto) 0.6 Eos # (Auto) 0.0 Baso # (Auto) 0.0 Immature Gran # (Auto) 0.03 H Absolute Nucleated RBC 0.00 Immature Gran % 1 H Nucleated RBC % 0 Sodium 135 L Potassium 3.7 Chloride 96 L Carbon Dioxide 30.3 Anion Gap 9 BUN 6 L Creatinine 0.6 Estim Creat Clear Calc 136.8 eGFR > 60 BUN/Creatinine Ratio 10 L Glucose 312 H D Calculated Osmolality 279 Calcium 8.8 Corrected Calcium 9.2 Phosphorus 3.0 Magnesium 1.4 L Total Bilirubin 0.4 AST 21 ALT 21 Alkaline Phosphatase 104 Total Protein 6.1 Albumin 3.5 Globulin 2.6 Albumin/Globulin Ratio 1.3 ABG Interpretation ABG results: 09/03/24 09/04/24 09/04/24 16:11 00:33 05:31 ABG pH 7.42 ABG pCO2 41 ABG pO2 94 ABG HCO3 27 H ABG O2 Saturation 97 ABG Base Excess 2 VBG pH 7.37 7.52 VBG pCO2 37 21 L D VBG pO2 31 138 H D VBG Base Excess -3 -4 L 09/04/24 07:10 ABG pH ABG pCO2 ABG pO2 ABG HCO3 ABG O2 Saturation ABG Base Excess VBG pH 7.44 VBG pCO2 39 D VBG pO2 84 H D VBG Base Excess 2 Quality Measures Quality Measures VTE prophylaxis Assessment & Plan Assessment Current Active Medications: Generic Name Dose Route Start Last Admin Trade Name Freq PRN Reason Stop Dose Admin Ascorbic Acid 500 mg 09/04/24 09:00 09/05/24 08:13 Ascorbic Acid 250 Mg Tablet PO 10/04/24 08:59 500 mg BID NANCY Administration Dextrose 25 ml 09/04/24 08:27 Dextrose 50%-Water Inj 50 Ml Syringe IV 10/04/24 08:26 Q15MIN PRN BG 50-70 responsive npo pt Dextrose 50 ml 09/04/24 08:27 Dextrose 50%-Water Inj 50 Ml Syringe IV 10/04/24 08:26 Q15MIN PRN BG <50 OR BG <70 & pt unresponsive Glucagon 1 mg 09/04/24 08:27 Glucagon Inj 1 Mg Vial IM Q15MIN PRN BG <70, and no IV access Heparin Sodium (Porcine) 5,000 unit 09/04/24 09:00 09/05/24 08:13 Heparin Sod Inj 5000 Unit/Ml Vial SC 09/18/24 08:59 5,000 unit Q12HR NANCY Administration Doxycycline Hyclate 100 mg/ 100 mls @ 100 mls/hr 07/23/25 09:15 09/05/24 08:12 Sodium Chloride IV 09/11/24 09:14 100 mls/hr BID NANCY Administration Piperacillin/Tazobactam/Dextrose 3.375 gm in 50 mls @ 12.5 mls/hr 09/04/24 14:00 09/05/24 05:30 Zosyn IV 09/11/24 13:59 12.5 mls/hr Q8HR NANCY Administration Magnesium Sulfate 4 gm in 50 mls @ 12.5 mls/hr 09/05/24 07:30 09/05/24 08:12 Magnesium Sulfate Ivpb IV 09/05/24 11:29 12.5 mls/hr X1 ONE Administration Insulin Glargine 20 unit 09/05/24 09:00 09/05/24 08:16 Insulin Glargine (Lantus) 5 Unit/0.05 Ml (Per 5 Units) SC 10/05/24 08:59 20 unit QDAY NANCY Administration Insulin Human Lispro 0 unit 09/04/24 11:30 09/05/24 08:15 Insulin Lispro (Admelog) 1 Unit/0.01 Ml Unit SC 10/04/24 11:29 4 unit ACHS NANCY Administration Protocol Insulin Human Lispro 2 unit 09/05/24 08:00 09/05/24 08:15 Insulin Lispro (Admelog) 1 Unit/0.01 Ml Unit SC 10/05/24 07:59 2 unit TIDWM NANCY Administration Ondansetron HCl 4 mg 09/03/24 23:55 Ondansetron Inj 2 Mg/Ml Inj 2 Ml IVP 10/03/24 23:54 Q6H PRN NAUSEA OR VOMITING Protocol Pantoprazole Sodium 40 mg 09/04/24 09:00 09/05/24 08:13 Pantoprazole Inj 40 Mg Vial IVP 10/04/24 08:59 40 mg QDAY NANCY Administration Thiamine HCl 100 mg 09/04/24 09:00 09/05/24 08:13 Thiamine Inj 100 Mg/Ml Vial 2 Ml IVP 10/04/24 08:59 100 mg QDAY NANCY Administration Zinc Sulfate 220 mg 09/04/24 09:00 09/05/24 08:13 Zinc Sulfate 220 Mg Capsule PO 10/04/24 08:59 220 mg QDAY NANCY Administration Plan Patient is 39 years old male with past medical history of insulin-dependent diabetes mellitus, previous hospital admissions for DKA, EtOH use, pancreatitis, hypertension presented to the ED complaining of left lower extremity pain and swelling, underwent I&D in the emergency room, and was admitted to ICU for further management of DKA. MRI Left knee negative for osteo. MRSA swab positive. # Moderate diabetic ketoacidosis, resolved # Poorly controlled insulin-dependent diabetes mellitus, hemoglobin A1c 10.4 Has poorly controlled IDDM with multiple hospital admissions due to DKA. Also has underlying infectious etiology and lower leg extremity cellulitis and abscess Labs showed VBG pH 7.37, pCO2 37, O2 31. CMP bicarb 21.4, glucose 242, BHB 5.2. He was given 2L of NS in the ED. Plan: - Transition to Lantus 20 units SC QD. - Start on Lispro 2 units TID. - Step 2 sliding scale - Will re-evaluate and adjust insulin dose - Follow CMP in a.m. - Referral to registered dietitian, diabetic education - EKG NSR at rate of 81 # Left lower extremity cellulitis and abscess status post I&D 09/03/2024 # Rule out osteomyelitis LLE XR showed soft tissue swelling. Underwent I&D in the ED. ESR and CRP elevated. WBC within normal limits. Patient symptoms less than 2 weeks, no precipitation event/injury per history. Evaluated by general surgery today, recommends continuing IV antibiotics Patient received ceftriaxone and vancomycin (09/03-09/04) Plan: - Bcx no growth @ 24H - Nasal swab MRSA Positive. - Started on IV Zosyn and doxycycline (09/04- - Obtain left lower extremity MRI without contrast : reads negative for osteo - Referral to wound care - Continue daily wound care. - Vitamin C and zinc per general surgery #Alcohol dependence Patient reports social use of alcohol but reported he drinks several beers daily. No symptoms of alcohol withdrawal. Plan: - Defer from CIWA protocol for now, will start on CIWA protocol if CIWA greater than 12. CIWA Score 0 today 09/05 - Thiamine 100 mg QD IV. - Referral to renal social worker - Patient advised to quit alcohol #Hypertension, by history Reports being prescribed losartan but does not take it. Normotensive in the ED. Plan: - Blood pressure soft, continue to monitor. #Chronic diarrhea. #Hx of pancreatitis. Patient has history of pancreatitis, does not follow up with GI, reports chronic diarrhea on and off. Plan: - Currently has no diarrhea, consider outpatient workup, monitor for diarrhea. #Acute kidney injury, resolved Baseline creatinine 0.5, creatinine increased by 0.3 on presentation did have underlying DKA received adequate fluid resuscitation. - Follow renal function in a.m. - Renally dose medications - Avoid nephrotoxic agents #Hypomagnesemia - Correct and replace electrolytes # High anion gap metabolic acidosis, in setting of DKA, resolved - downgrade to [facility] #Chronic normocytic anemia. Consistent with prior readings, Hgb 12.5. Plan: - monitor with daily CBC. Diet: Carbohydrate consistent low DVT prophylaxis: Heparin. GI prophylaxis: IV Protonix. Code status: FULL CODE. Disposition: Downgraded to [facility] Case discussed with my senior resident Dr. Gray Case discussed with my attending Dr. Kelley Matos, DO PGY 1
[2024-09-05 09:30] VITALS: PULSE 78; RESP 18; O2SAT 97
[2024-09-05 09:47] VITALS: BP 117/82; PULSE 91; RESP 18; TEMP 36.8; O2SAT 98
[2024-09-05 10:48] LABS: Vancomycin,Trough < 3.0 mcg/mL (5.0-10.0)
[2024-09-05 12:00] VITALS: BP 120/60; PULSE 80; RESP 18; TEMP 36.7; O2SAT 98
--- NOTE | 2024-09-05 13:20 | ESDS_ITS ---
<Statement entered by Kandice Benson DO - 09/05/24 18:43> I, Kandice Benson DO, attest that I was physically present for the aguilar portions of the service and evaluated the patient with the resident and I reviewed and discussed the case with the resident and agree with the resident's findings and plans of care as documented above Planned Discharge Date 09/05/24 DS: Providers Provider Date of admission: 09/03/24 23:55 Primary care physician: Physician No Primary/Family Admitting Provider: Sanaz Barker MD Attending Provider on Admission: Sanaz Barker MD Consults: 09/03/24 23:58 Referral Registered Dietitian Routine Comment: 09/04/24 00:49 Consult to General Surgery Stat Comment: LLE abscess s/p I&D Consulting Provider: Adilene Betancourt 09/04/24 08:00 [facility] Referral - Knowledge Deficit Routine Comment: Positive screening for knowledge deficit needs. 09/05/24 11:02 Referral OP Wound Healing Dept Routine Comment: LLE abscess s/p I&D 09/05/24 11:03 Referral Nutritional Services Routine Comment: Wounds Attending Provider on DC: Kandice Benson DO Discharging Provider: Joseph Matos DO Anticipated date of discharge: 09/05/24 DS: Diagnosis Problem List Completed Was Problem List Reviewed/Reconciled?: Yes Hospital Course Hospital Course Hospital course: Mr. Bailey is a 39M with past medical history of insulin-dependent diabetes mellitus admitted for DKA and left lower extremity abscess. He underwent I&D in the emergency room, and was admitted to ICU for further management of DKA. He was downgraded to MedSurg on 09/04/24 after closing anion gap with resolution of DKA. Venous doppler shows no evidence of deep vein thrombosis. Normal color flow and spectral analysis, negative for DVT. MR left lower extremity shows soft tissue abscess anterior to mid tibial shaft, negative for osteomyelitis. He was put on Vancomycin and Zosyn during his stay in the hospital. Advised pt to follow up with wound care outpatient, and continue with his current Insulin regimen to manage his diabetes. Pt is medically and physically stable for discharge. Diagnosis #Moderate diabetic ketoacidosis, resolved #Left lower extremity cellulitis #Hypertension #Acute kidney injury Discharge Plan: Continue taking insulin sliding scale 5 units 3 times daily with meals and Lantus 30 units every afternoon. Check your blood sugars before meals and in the morning before breakfast every day * You have been given Ossiastyle kayden 3 sensor device along with reader to check your blood sugars * Take all medication as prescribed * Follow up at [facility], [address] [place] [address]. Call [phone] for appointment for left lower leg abscess * Wound care to left lower leg: may remove dressing and shower. -Wash hands with soap and water -Cleanse wound with wound cleanser spray and pat dry with gauze. -Wash hands again -Pack wound with strip packing until wound is filled. -Cover with dry dressing -Change dressing once a day and as needed for falling off or soiling Follow-up with your PCP as outpatient within a week In case of emergency, call 911 and come back to the ED In case if you do not have a primary care doctor, call [facility] at [phone] Case discussed with my senior resident Dr. Gray Case discussed with my attending Dr. Kelley Matos, DO PGY 1 Time Spent with Patient Time attestation: Total time spent providing and/or coordinating discharge services: Time spent: Greater than 30 minutes Exam Vital Signs Temp Pulse Resp BP Pulse Ox O2 Del Method O2 Flow Rate 98.2 F 91 18 117/82 98 Room Air 4 09/05/24 09:47 09/05/24 09:47 09/05/24 09:47 09/05/24 09:47 09/05/24 09:47 09/05/24 09:47 09/04/24 08:00 Narrative Exam Gen: Well-developed and well-nourished male. HEENT: NCAT, PERRLA, EOMI, MMM, anicteric conjunctivae. CVS: normal S1 and S2. RRR. No M/R/G. Resp: CTA B/L. No rhonchi, rales, crackles or wheezing. Abd: soft, non-tender, non-distended. BS+ in all 4 quadrants. MSK: Good ROM in BUE & BLE. No edema or rash. s/p I&D LLE, covered with bandage. Neuro: CN II-XII grossly intact. Strength 5/5 in BUE & BLE. Alert and oriented x3. Psych: appropriate mood and affect. Discharge Plan Plan Patient Disposition: HOME (Self Care) Care Plan Goals: * Continue taking insulin sliding scale 5 units 3 times daily with meals and Lantus 30 units every afternoon. Check your blood sugars before meals and in the morning before breakfast every day * You have been given freestyle kayden 3 sensor device along with reader to check your blood sugars * Take all medication as prescribed * Follow up at [facility], [address] [place] [address]. Call [phone] for appointment for left lower leg abscess * Wound care to left lower leg: may remove dressing and shower. -Wash hands with soap and water -Cleanse wound with wound cleanser spray and pat dry with gauze. -Wash hands again -Pack wound with strip packing until wound is filled. -Cover with dry dressing -Change dressing once a day and as needed for falling off or soiling Follow-up with your PCP as outpatient within a week In case of emergency, call 911 and come back to the ED In case if you do not have a primary care doctor, call [facility] at [phone] Prescriptions/Referrals Prescriptions/Med Rec: New (DME) FreeStyle Kayden 3 Plus Sensor Device See Rx Instructions .Route Qty: 1 0RF Rx Instructions: As directed (DME) FreeStyle Kayden 3 [place] Misc See Rx Instructions .Route Qty: 1 0RF Rx Instructions: As directed ascorbic acid (vitamin C) 500 mg capsule 500 mg PO BID Qty: 90 0RF sulfamethoxazole-trimethoprim [Bactrim DS] 800-160 mg tablet 1 tab PO BID 7 Days Qty: 14 0RF Continued (DME) lancets Misc See Rx Instructions .Route Qty: 100 0RF Rx Instructions: As directed (DME) lancets [Accu-Chek Fastclix Lancet Drum] Misc See Rx Instructions .Route Qty: 100 1RF Rx Instructions: As directed (DME) pen needle, diabetic 31 gauge x 1/4 needle See Rx Instructions .Route Qty: 100 0RF Rx Instructions: As directed insulin glargine [Lantus Solostar U-100 Insulin] 100 unit/mL (3 mL) insulin pen 30 unit subcut QPM Qty: 15 4RF (DME) pen needle, diabetic [Ultra-Thin II Ins Pen [place]] 29 gauge x 1/2 needle See Rx Instructions .Route Qty: 100 0RF Rx Instructions: As directed Baqsimi 3 mg/actuation spray,non-aerosol 3 mg intranasal QDAY PRN (Reason: hypoglycemia) Qty: 2 0RF (DME) FreeStyle Kayden 3 Plus Sensor Device See Rx Instructions .Route Qty: 1 3RF Rx Instructions: As directed (DME) blood-glucose meter [Accu-Chek Guide Glucose Meter] Misc See Rx Instructions .Route Qty: 1 1RF Rx Instructions: As directed (DME) Accu-Chek Guide test strips Strip See Rx Instructions .Route Qty: 100 0RF Rx Instructions: As directed (DME) Accu-Chek Guide test strips Strip See Rx Instructions .Route Qty: 25 0RF Rx Instructions: As directed captopril 25 mg Tablet 25 mg PO DAILY Qty: 30 0RF insulin lispro 100 unit/mL insulin pen 5 unit subcut TIDWMEAL Qty: 15 1RF Rx Instructions: 3 times daily with meals Referrals: No Primary/Family,Physician [Primary Care Provider] - Patient/Caregiver Discharge Instructions Education Materials: Nutrition for Wound Healing, Changing Dressing Dc, Discharge Instructions Wound ... Print Language: Luxembourgish Stand Alone Forms: Ariela Award Info., Patient Portal Info Letter Discharge Order Discharge Orders: Discharge (Routine); Ordered 09/05/24 Ordered By: Av Gray Quality Discharge Quality Measures none
== END 2024-09-05 13:25 | disposition home or self-care (01) | DRG 420 ==
LOC: SERX 20:46 → SERHOLD 09-04 00:37 → S2SX 09-04 01:37 → S3SX 09-05 05:11
PROVIDERS: Nurse Practitioner Primary Care; Student in an Organized Health Care Education/Training Program; Admitting Provider Student in an Organized Health Care Education/Training Program; Emergency Provider Emergency Medicine; Visit Provider Student in an Organized Health Care Education/Training Program
DX: E11.10 Type 2 diabetes mellitus with ketoacidosis without coma (principal); L02.416 Cutaneous abscess of left lower limb; I10 Essential (primary) hypertension; K52.9 Noninfective gastroenteritis and colitis, unspecified; D64.9 Anemia, unspecified; L03.116 Cellulitis of left lower limb; E78.00 Pure hypercholesterolemia, unspecified; E83.42 Hypomagnesemia; F10.20 Alcohol dependence, uncomplicated; N17.9 Acute kidney failure, unspecified; Z79.4 Long term (current) use of insulin; E87.3 Alkalosis
CPT/HCPCS: 36415; 36600; 71045; 73590; 73718; 80048; 80053; 80069; 80202; 81001; 82010; 82803; 83036; 83605; 83615; 83735; 84100; 84145; 85025; 85610; 85652; 86140; 87040; 87081; 93005; 93971; 96361; 96365; 96366; 96375; 99284; J0696; J1644; J1815; J2270; J2405; J2470; J2543; J3373; J3411; J3475; J3480; J3490; J7030; J7120; J7121; J7999; A9270

== ENCOUNTER → 2024-09-09 | Outpatient (CLI) | payer MEDICAID, SELFPAY | END | disposition home or self-care (01) | LOC: SWHD 09:22 | PROVIDERS: PCP Neuromusculoskeletal Medicine & OMM; Referring Provider Neuromusculoskeletal Medicine & OMM; Visit Provider Student in an Organized Health Care Education/Training Program | DX: L02.416 Cutaneous abscess of left lower limb (principal); S81.802A Unspecified open wound, left lower leg, initial encounter; X58.XXXA Exposure to other specified factors, initial encounter; I10 Essential (primary) hypertension; E11.40 Type 2 diabetes mellitus with diabetic neuropathy, unspecified; E11.10 Type 2 diabetes mellitus with ketoacidosis without coma; Z79.4 Long term (current) use of insulin; K85.90 Acute pancreatitis without necrosis or infection, unspecified | CPT/HCPCS: 97597; 99213; A9270; G0463 ==

== ENCOUNTER → 2024-09-16 | Outpatient (CLI) | payer MEDICAID, SELFPAY | END | disposition home or self-care (01) | LOC: SWHD 14:52 | PROVIDERS: PCP Family Medicine; Referring Provider Family Medicine; Visit Provider Surgery | DX: L02.416 Cutaneous abscess of left lower limb (principal); S81.802A Unspecified open wound, left lower leg, initial encounter; X58.XXXA Exposure to other specified factors, initial encounter; I10 Essential (primary) hypertension; E11.40 Type 2 diabetes mellitus with diabetic neuropathy, unspecified; E11.10 Type 2 diabetes mellitus with ketoacidosis without coma; Z79.4 Long term (current) use of insulin; K85.90 Acute pancreatitis without necrosis or infection, unspecified | CPT/HCPCS: 99213; A9270; G0463 ==

== ENCOUNTER → 2024-09-23 | Outpatient (CLI) | payer MEDICAID, SELFPAY | END | disposition home or self-care (01) | LOC: SWHD 14:56 | PROVIDERS: PCP Family Medicine; Referring Provider Family Medicine; Visit Provider Student in an Organized Health Care Education/Training Program | DX: L02.416 Cutaneous abscess of left lower limb (principal); S81.802A Unspecified open wound, left lower leg, initial encounter; X58.XXXA Exposure to other specified factors, initial encounter; I10 Essential (primary) hypertension; E11.40 Type 2 diabetes mellitus with diabetic neuropathy, unspecified; E11.10 Type 2 diabetes mellitus with ketoacidosis without coma; Z79.4 Long term (current) use of insulin; K85.90 Acute pancreatitis without necrosis or infection, unspecified | CPT/HCPCS: 99213; A9270; G0463 ==

== ENCOUNTER → 2024-09-30 | Outpatient (CLI) | payer MEDICAID, SELFPAY | END | disposition home or self-care (01) | LOC: SWHD 15:04 | PROVIDERS: PCP Family Medicine; Referring Provider Family Medicine; Visit Provider Student in an Organized Health Care Education/Training Program | DX: L02.416 Cutaneous abscess of left lower limb (principal); S81.802A Unspecified open wound, left lower leg, initial encounter; X58.XXXA Exposure to other specified factors, initial encounter; I10 Essential (primary) hypertension; E11.40 Type 2 diabetes mellitus with diabetic neuropathy, unspecified; E11.10 Type 2 diabetes mellitus with ketoacidosis without coma; Z79.4 Long term (current) use of insulin; K85.90 Acute pancreatitis without necrosis or infection, unspecified | CPT/HCPCS: 99213; G0463 ==

== ENCOUNTER → 2024-10-07 | Outpatient (CLI) | payer MEDICAID, SELFPAY | END | disposition home or self-care (01) | LOC: SWHD 14:50 | PROVIDERS: PCP Family Medicine; Referring Provider Family Medicine; Visit Provider Student in an Organized Health Care Education/Training Program | DX: L02.416 Cutaneous abscess of left lower limb (principal); S81.802A Unspecified open wound, left lower leg, initial encounter; X58.XXXA Exposure to other specified factors, initial encounter; I10 Essential (primary) hypertension; E11.40 Type 2 diabetes mellitus with diabetic neuropathy, unspecified; E11.10 Type 2 diabetes mellitus with ketoacidosis without coma; Z79.4 Long term (current) use of insulin; K85.90 Acute pancreatitis without necrosis or infection, unspecified | CPT/HCPCS: 99213; A9270; G0463 ==